=== PATIENT | female | born 1980 | race Caucasian/White ===

== ENCOUNTER 2017-01-08 12:54 | Outpatient (CLI) | payer OTHER | END 2017-01-08 12:55 | disposition home or self-care (01) | LOC: DTY/OP 12:54 | PROVIDERS: ATTEND Surgery | DX: I10 Essential (primary) hypertension (principal) | CPT/HCPCS: 97802 ==

== ENCOUNTER 2017-02-22 16:47 | Outpatient (CLI) | payer BC ==
[2017-02-22 17:48] LABS: #Basophils 0.1 thou/uL (0.0-0.2); #Eosinphils 0.1 thou/uL (0.0-0.7); #Lymphocytes 3.4 thou/uL (1.20-3.40); #Monocytes 0.6 thou/uL (0.11-0.59); #Neutrophils 5.8 thou/uL (1.40-6.50); %Basophils 0.6 % (0.0-1.0); %Eosinophils 1.2 % (0.0-10.0); %Lymphocytes 34.2 % (21.0-51.0); %Monocytes 6.3 % (0.0-10.0); Hematocrit 40.3 % (36.0-47.0); Mean Platelet Volume 7.7 fL (7.4-10.4); Red Blood Cell (RBC) Count 4.66 mill/uL (4.20-5.40)
[2017-02-22 18:04] LABS: ALT (SGPT) 13 U/L (8-55); AST (SGOT) 16 U/L (5-34); Alkaline Phosphatase 64 U/L (40-150); Anion Gap 16 mmol/L (10-20); BUN (Urea Nitrogen) 21 mg/dL (7.0-18.7); Bilirubin, Direct 0.2 mg/dL (0.1-0.3); Bilirubin, Total 0.5 mg/dL (0.2-1.2); Calc. Creatinine Clearance 0 mL/min (70-130); Calcium 9.7 mg/dL (7.8-10.44); Carbon Dioxide 22 mmol/L (22-29); Chloride 103 mmol/L (98-107); Estimated GFR-MDRD 74; Globulin 3.2 g/dL (2.4-3.5); Protein, Total 7.2 g/dL (6.0-8.3)
[2017-02-22 18:07] LABS: Hemoglobin A1c 4.6 % (4.0-6.0)
--- NOTE | 2017-02-22 18:21 | RAD ---
TWO VIEWS CHEST: Date: 02-22-17 Provided Clinical History: Pre op. FINDINGS: Cardiac and mediastinal silhouette is within normal limits. Lungs appear clear. No pleural fluid or p neumothorax apparent. IMPRESSION: No evidence for an acute cardiopulmonary process. POS: [facility]
--- NOTE | 2017-02-23 16:34 | EKG ---
Test Reason : Blood Pressure : / mmHG Vent. Rate : 073 BPM Atrial Rate : 073 BPM P-R Int : 142 ms QRS Dur : 084 ms QT Int : 410 ms P-R-T Axes : 042 -22 005 degrees QTc Int : 451 ms Normal sinus rhythm Possible Anterior infarct , age undetermined Nonspecific T wave abnormality Abnormal ECG No previous ECGs available Confirmed by JOHN SEN ([id number]) on 02/23/2017 4:33:48 PM Referred By: TASNEEM Confirmed By:JOHN SEN
== END 2017-02-22 16:48 | disposition home or self-care (01) ==
LOC: LABBT 16:47
PROVIDERS: ATTEND Surgery
DX: E66.01 Morbid (severe) obesity due to excess calories (principal)
CPT/HCPCS: 71020; 80053; 80076; 83036; 84703; 85025; 93005; 93010

== ENCOUNTER 2017-03-18 07:43 | Inpatient (IN) | payer BC ==
[2017-03-18] MEDS ORDERED: Bupivacaine/Epinephrine 0.25% 30 ML VIAL ONE ×2 (08:15→08:26)
[2017-03-18] MEDS ORDERED: CEFAZOLIN/Water 2 GM/20 ML SYRINGE ONE (08:50)
[2017-03-18] MEDS ORDERED: Heparin 5,000 UNITS/ML VIAL ONE (08:50)
[2017-03-18] MEDS ORDERED: Fentanyl 100 MCG/2 ML VIAL ONE (09:43)
[2017-03-18] MEDS ORDERED: HYDROmorphone 0.5 MG/0.5 ML SYRINGE ONE (09:43)
[2017-03-18] MEDS ORDERED: Midazolam HCl 2 mg/2 ml Vial ONE ×2 (09:43→09:44)
[2017-03-18] MEDS ORDERED: Naloxone HCl 0.4 mg/ml Vial IV PRN (09:48)
[2017-03-18] MEDS ORDERED: Promethazine HCl 25 MG/ML VIAL IM PRN ×3 (09:48→11:13)
[2017-03-18] MEDS ORDERED: Ketorolac Tromethamine 30 MG/ML VIAL IVP PRN (09:48)
[2017-03-18] MEDS ORDERED: Ondansetron HCl/PF 4 MG/2 ML Vial IVP PRN ×2 (09:48→11:13)
[2017-03-18] MEDS ORDERED: diphenhydrAMINE 25 MG CAP PO PRN (09:48)
[2017-03-18] MEDS ORDERED: HYDROmorphone 10 mg/100 ml CADD IVPB PRN (09:48)
[2017-03-18] MEDS ORDERED: diphenhydrAMINE 50 MG/ML VIAL IVP PRN ×2 (09:48→11:13)
[2017-03-18] MEDS ORDERED: diphenhydrAMINE 50 MG/ML VIAL IM PRN (09:48)
[2017-03-18] MEDS ORDERED: Promethazine HCl 25 MG/ML VIAL SLOW IVP PRN (09:48)
[2017-03-18] MEDS ORDERED: Meperidine HCl/PF 25 MG/ML VIAL SLOW IVP PRN (09:48)
[2017-03-18] MEDS ORDERED: Zolpidem Tartrate 5 MG TAB PO PRN (09:48)
[2017-03-18] MEDS ORDERED: HYDROmorphone 2 MG/ML VIAL SLOW IVP PRN (09:48)
[2017-03-18] MEDS ORDERED: Communication Order-Pharmacy FS SCH (10:00)
[2017-03-18] MEDS ORDERED: Dextrose 50% Abboject 50 ML SYRINGE SLOW IVP PRN (11:13)
[2017-03-18] MEDS ORDERED: hydrALAZINE 20 MG/ML VIAL SLOW IVP PRN (11:13)
[2017-03-18] MEDS ORDERED: Dextrose 5% in Water 1,000 ML IV PRN (11:13)
--- NOTE | 2017-03-18 11:22 | OP ---
PREOPERATIVE DIAGNOSIS: Morbid obesity. SURGEON: Wolfgang Ames M.D. PROCEDURES PERFORMED: Laparoscopic sleeve gastrectomy and esophagogastroscopy. INDICATIONS: The patient is a 36-year-old female, morbidly obese, who has attempted multiple weight loss programs without success. FINDINGS: A 38 Persian bougie used. PROCEDURE IN DETAIL: After informed consent was obtained, the patient was taken to the operating rhea m and given general endotracheal anesthesia. She was placed in the supine position. The abdomen was prepped and draped in the usual fashion. Local anesthesia infiltrated subcutaneously and deep. A 1 2 mm incision was performed approximately 8 inches below the xiphoid slightly to the left. Veress ne edle inserted. Drop test performed. Pneumoperitoneum was created to a volume of 2 liters of carbon dioxide. Utilizing a bladeless 12 mm trocar and 0 degree laparoscope direct visual entry in the abdo mustapha cavity was performed. Pneumoperitoneum was created to a pressure of 15 mmHg. The patient was placed in steep reverse Trendelenburg position. Nathansen liver retractor inserted. Left lobe of li portia retracted superiorly. The pylorus identified and a 12 mm port placed on the right beneath it and two 12s placed left subcostal. The omentum was taken off the greater curvature 5 cm from the pyloru s utilizing the LigaSure. The short gastrics divided with LigaSure and the left crura defined with t he LigaSure. A 38-Persian bougie inserted directed into the antrum. The linear 60 mm green load stap ler used to divide the antrum to the bougie, gold load along the bougie, and a series of blues throug h the angle of His. Intraoperative endoscopy was performed. The video endoscope inserted under dire ct vision and advanced into the sleeve. Staple line inspected. There was no bleeding. Staple line then tested by inflating the new stomach with pressurized air under water. There was no air leak. S tomach decompressed. Scope removed. The remnant stomach removed from the abdomen through the left l ateral port site. The fascia closed with 0 Vicryl suture and the GraNee needle. Trocars and retract ors removed. The skin closed with interrupted 4-0 Rapide. Dermabond applied. The patient tolerated the procedure well and transferred to recovery in good condition. Sponge and needle count verified correct x2.
[2017-03-18] MEDS: Acetaminophen 1,000 MG in Premix Bag 1 BAG IVPB SCH ×2 (16:38→16:49)
[2017-03-18] MEDS: CEFAZOLIN/Water 2 GM/20 ML SYRINGE SLOW IVP SCH (16:39)
[2017-03-18] MEDS: D5 1/2 NS w/20 mEq KCL 1,000 ML IV SCH (16:39)
[2017-03-18] MEDS ORDERED: Glycopyrrolate 0.2 MG/ML 5 ML SYRINGE ONE (16:51)
[2017-03-18] MEDS ORDERED: PROPOFOL 200 MG/20 ML VIAL ONE (16:51)
[2017-03-18] MEDS ORDERED: Dexamethasone 20 MG/5 ML VIAL ONE (16:51)
[2017-03-18] MEDS ORDERED: Ketorolac Tromethamine 30 MG/ML VIAL ONE (16:51)
[2017-03-18] MEDS ORDERED: Ondansetron HCl/PF 4 MG/2 ML Vial ONE (16:51)
[2017-03-18] MEDS ORDERED: Lidocaine 1% PF 5 ML VIAL ONE (16:51)
[2017-03-19] MEDS: Acetaminophen 1,000 MG in Premix Bag 1 BAG IVPB SCH ×3 (00:25→12:05)
[2017-03-19] MEDS: CEFAZOLIN/Water 2 GM/20 ML SYRINGE SLOW IVP SCH (00:26)
[2017-03-19] MEDS: D5 1/2 NS w/20 mEq KCL 1,000 ML IV SCH ×4 (00:26→22:40)
[2017-03-19] MEDS: Ondansetron HCl/PF 4 MG/2 ML Vial IVP PRN ×3 (05:36→22:28)
[2017-03-19 05:40] LABS: #Lymphocytes 1.9 thou/uL (1.20-3.40); #Monocytes 0.9 thou/uL (0.11-0.59); #Neutrophils 9.9 thou/uL (1.40-6.50); %Basophils 0.1 % (0.0-1.0); %Eosinophils 0.2 % (0.0-10.0); %Lymphocytes 14.7 % (21.0-51.0); %Monocytes 6.7 % (0.0-10.0); %Neutrophils 78.3 % (42.0-75.0); Hemoglobin 12.7 g/dL (12.0-16.0); Mean Corpuscular HGB CONC 32.8 g/dL (32.0-36.0); Mean Corpuscular Hemoglobin 29.1 pg (27.0-31.0); Mean Corpuscular Volume 88.7 fl (81.0-99.0); Mean Platelet Volume 8.3 fL (7.4-10.4); Platelet Count 324 thou/uL (130-400); RBC Distribution Width 12.3 % (11.5-14.5); Red Blood Cell (RBC) Count 4.36 mill/uL (4.20-5.40); White Blood Cell (WBC) Count 12.6 thou/uL (4.8-10.8)
[2017-03-19 05:46] LABS: Anion Gap 16 mmol/L (10-20); BUN (Urea Nitrogen) 5 mg/dL (7.0-18.7); Calc. Creatinine Clearance 160 mL/min (70-130); Calcium 8.8 mg/dL (7.8-10.44); Carbon Dioxide 20 mmol/L (22-29); Chloride 104 mmol/L (98-107); Estimated GFR-MDRD Greater than 90; Glucose 136 mg/dL (70-105); Potassium 3.9 mmol/L (3.5-5.1); Sodium 136 mmol/L (136-145)
[2017-03-19] MEDS: Pantoprazole 40 MG VIAL IVP SCH (09:02)
[2017-03-19] MEDS: Enoxaparin Sodium 40 MG/0.4 ML SYRINGE SC SCH (09:02)
--- NOTE | 2017-03-19 11:04 | RAD ---
A 15 CC GASTROGRAFIN UPPER GI: DATE: 03/19/17. HISTORY: Recent gastric sleeve procedure, assess for a leak or obstruction. FINDINGS: The patient ingested approximately 15 cc of Gastrografin and the contrast media was followed from the distal esophagus to the proximal small bowel. There is no evidence for a leak or obstruction. IMPRESSION: No evidence for leak or obstruction. POS: [facility]
[2017-03-19] MEDS ORDERED: GASTROGRAFIN 30 ML BOT ONE (12:23)
[2017-03-19] MEDS ORDERED: Hydrocodone-Acetamin 15 ML UDCUP PO PRN (14:56)
[2017-03-20] MEDS: D5 1/2 NS w/20 mEq KCL 1,000 ML IV SCH (03:54)
[2017-03-20 08:17] VITALS: BP 148/95; TEMP 98.3
[2017-03-20] MEDS: Pantoprazole 40 MG VIAL IVP SCH (08:29)
[2017-03-20] MEDS: Enoxaparin Sodium 40 MG/0.4 ML SYRINGE SC SCH (08:29)
--- NOTE | 2017-03-20 09:36 | DIS ---
DATE OF ADMISSION: 03/18/2017 DATE OF DISCHARGE: 03/20/2017 ADMIT DIAGNOSIS: Morbid obesity. DISCHARGE DIAGNOSIS: Morbid obesity. PROCEDURE: Laparoscopic sleeve gastrectomy without complication. CONDITION AT DISCHARGE: Improved. STAFF: Kwaku. HOSPITAL COURSE: Postop day 1, the patient was doing well, but she had moderate amount of nausea. H er swallow study was clear of leak or obstruction. She was kept second night. On postoperative day 2, she is doing much better. She is tolerating liquids without difficulty. Her pain is controlled. She is to be discharged home today. She will follow up with Dr. Ames in 2 weeks.
[2017-04-01] MEDS ORDERED: Hydrocodone-Acetamin 15 ML UDCUP PO PRN (11:13)
== END 2017-03-20 10:45 | disposition home or self-care (01) | DRG 621 ==
LOC: SDC 07:43 → SURG A 12:54
PROVIDERS: ADMIT Surgery; ATTEND Surgery
PROC: 0DB64Z3 Excision of Stomach, Percutaneous Endoscopic Approach, Vertical (ICD-10-PCS; principal; 2017-03-18)
PROC: 0DJ08ZZ Inspection of Upper Intestinal Tract, Via Natural or Artificial Opening Endoscopic (ICD-10-PCS; 2017-03-18)
DX: E66.01 Morbid (severe) obesity due to excess calories (principal); Z88.2 Allergy status to sulfonamides; Z68.39 Body mass index [BMI] 39.0-39.9, adult
CPT/HCPCS: 36415; 74241; 80048; 85025; 88307; 88312; 94760; A4216; C9113; J0131; J1100; J1170; J1200; J1644; J1650; J1885; J2001; J2250; J2405; J2704; J3010

== ENCOUNTER 2017-03-30 21:56 | Inpatient (IN) | payer BC ==
[~2017-03-30 21:56] MED LIST: ISOVUE-370 76%-LOCM 1 ML ONE; Iopamidol 370 76% 50 ML VIAL FS ONE
[2017-03-30 22:42] LABS: #Basophils 0.1 thou/uL (0.0-0.2); #Eosinphils 0.1 thou/uL (0.0-0.7); #Lymphocytes 2.6 thou/uL (1.20-3.40); #Monocytes 2.1 thou/uL (0.11-0.59); %Basophils 0.5 % (0.0-1.0); %Eosinophils 0.3 % (0.0-10.0); %Lymphocytes 14.7 % (21.0-51.0); %Monocytes 11.7 % (0.0-10.0); %Neutrophils 72.7 % (42.0-75.0); Hemoglobin 13.3 g/dL (12.0-16.0); Mean Corpuscular HGB CONC 32.9 g/dL (32.0-36.0); Mean Corpuscular Hemoglobin 28.4 pg (27.0-31.0); Mean Corpuscular Volume 86.4 fl (81.0-99.0); Mean Platelet Volume 8.4 fL (7.4-10.4); Platelet Count 352 thou/uL (130-400); Red Blood Cell (RBC) Count 4.68 mill/uL (4.20-5.40); White Blood Cell (WBC) Count 17.9 thou/uL (4.8-10.8)
[2017-03-30 22:48] LABS: INR-International Normal Ratio 1.2; PTT 32.8 SEC (22.9-36.1); Prothrombin Time 15.6 SEC (12.0-14.7)
[2017-03-30] MEDS ORDERED: Morphine 4 MG/ML Carpuject ONE (22:48)
[2017-03-30 23:01] LABS: ALT (SGPT) 21 U/L (8-55); AST (SGOT) 15 U/L (5-34); Albumin 3.7 g/dL (3.5-5.0); Alkaline Phosphatase 91 U/L (40-150); Anion Gap 19 mmol/L (10-20); BUN (Urea Nitrogen) 10 mg/dL (7.0-18.7); Bilirubin, Total 0.7 mg/dL (0.2-1.2); Calc. Creatinine Clearance 0 mL/min (70-130); Calcium 9.2 mg/dL (7.8-10.44); Carbon Dioxide 18 mmol/L (22-29); Chloride 94 mmol/L (98-107); Estimated GFR-MDRD Greater than 90; Globulin 3.5 g/dL (2.4-3.5); Glucose 109 mg/dL (70-105); Lipase 69 U/L (8-78); Potassium 4.2 mmol/L (3.5-5.1); Protein, Total 7.2 g/dL (6.0-8.3); Sodium 127 mmol/L (136-145)
[2017-03-30 23:06] LABS: Bilirubin Moderate (Negative); Blood, Urine Trace (Negative); Clarity CLOUDY (Clear); Glucose, Urine (Dipstick) Negative (Negative); Leukocyte Small (Negative); Nitrite Negative (Negative); Protein, Urine (Dipstick) Negative (Neg-Trace); Specific Gravity, Urine 1.018 (1.002-1.036); Urobilinogen 0.2 mg/dL (0.2-1.0); pH, Urine 6.5 (5.0-9.0)
[2017-03-30 23:09] LABS: Bacteria/HPF 1+ HPF (None Seen); Hyaline Casts/LPF 0-3 HYALINE CAST LPF (0-3 Hyaline); Pathc Cast-AUWi Flag 0.54 (0-2.49)
[2017-03-30 23:12] LABS: Pregnancy Test - Urine (BHCG) Negative (Negative); Pregu Control Background? CLEAR/WHITE (CLR/WHITE); Pregu Control Bar Appear? YES (CONTROL BAR); Specific Gravity 1.018 (1.002-1.036)
[2017-03-30] MEDS ORDERED: Morphine 2 MG/ML SYRINGE ONE (23:45)
--- NOTE | 2017-03-30 23:45 | CT ---
CT ABDOMEN AND PELVIS WITH IV CONTRAST 03/30/17 PROVIDED CLINICAL HISTORY: Abdominal pain. FINDINGS: The visualized lung bases are free of significant opacity. There is nonopacification of the intrahepatic and extrahepatic portal vein as well as the splenic and superior mesenteric veins, compatible with thrombosis. There is a mildly heterogeneous appearance to the anterior segment of the right hepatic lobe which may be on the basis of altered vascular supply related to thrombosis. The spleen, pancreas, kidneys and adrenal glands appear unremarkable. Gallstones are seen. Gallstones are seen. Postoperative changes of gastric sleeve procedure are noted. There is no evidence for leakage of admi nistered oral contrast material. There is free intraperitoneal air present as well as air within the left anterolateral abdominal wall. There is no bowel dilatation. There is minimal free pelvic fluid. The osseous structures demonstrate no concerning osteoblastic or osteolytic lesions. IMPRESSION: 1. Diffuse intrahepatic and extrahepatic portal vein thrombosis also involving the superior mese nteric and splenic veins. 2. Free intraperitoneal air, the significance of which is not certain given the patient has had recent surgery. The degree of peritoneal gas present is somewhat greater than would be expected for t he patient's provided surgical date of 03/18/17. 3. These findings were discussed with Dr. Alejandra via telephone, 11:33 p.m., 03/30/17. Code CR POS: [facility]ET
[2017-03-30] MEDS ORDERED: Enoxaparin Sodium 80 MG/0.8 ML SYRINGE ONE (23:57)
[2017-03-31] MEDS ORDERED: Morphine 5 MG/ML SYRINGE SLOW IVP PRN (01:50)
[2017-03-31] MEDS ORDERED: Morphine 2 MG/ML SYRINGE SLOW IVP PRN ×2 (01:52→04:25)
[2017-03-31] MEDS ORDERED: Ondansetron HCl/PF 4 MG/2 ML Vial IVP PRN ×2 (01:54→04:25)
[2017-03-31] MEDS ORDERED: Acetaminophen 325 MG TAB PO PRN (01:54)
[2017-03-31] MEDS ORDERED: Ondansetron ODT 4 MG TAB SL PRN (01:54)
[2017-03-31] MEDS ORDERED: Sodium Chloride 0.9% 1,000 ML IV SCH (02:00)
[2017-03-31 02:14] VITALS: BMI 38.1
[2017-03-31] MEDS ORDERED: Warfarin Sodium 5 MG TAB PO SCH ×2 (03:30→17:00)
[2017-03-31] MEDS ORDERED: Ondansetron ODT 4 MG TAB PO PRN (04:25)
[2017-03-31] MEDS: Hydrocodone-Acetamin 15 ML UDCUP PO PRN (05:07)
--- NOTE | 2017-03-31 06:51 | HP ---
DATE OF ADMISSION: 03/31/2017 TIME OF SERVICE: 0400. PRIMARY CARE PHYSICIAN: Dr. Wang Holloway. GENERAL SURGEON: Dr. Wolfgang Ames. CHIEF COMPLAINT: Abdominal pain. HISTORY OF PRESENT ILLNESS: Ms. Pablo is a 36-year-old white female with a history of anxiety and ob esity who is 11 days postop laparoscopic gastric sleeve procedure by Dr. Ames. She did well initially, but now had 1 week of increasing abdominal pain. She describes it as throbbi ng in all of her abdomen. She has some nausea without vomiting. No fevers or chills. She has been able to tolerate her liquid diet. Pain is exacerbated with movement and lying flat. She came to the emergency department for evaluation. There, she was found to have labs with an elevated white blood cell count, but otherwise fairly luz l. Vital signs were unremarkable except for a slight tachycardia. Urinalysis was clean. CT scan of the abdomen was done that showed intrahepatic and extrahepatic portal vein thrombosis, superior mese nteric vein and splenic vein thrombosis. She had free air more than would be expected at this point after a laparoscopic procedure. There was no other mention of leak. I contacted Dr. Ames from the emergency department who requested that we admit and he would consult. The patient is transferred to the floor. She is feeling okay at present. Nausea is under control. No shaking, chills or rigors. No other complaints. PAST MEDICAL HISTORY: 1. Anxiety. 2. Obesity. PAST SURGICAL HISTORY: Includes laparoscopic gastric sleeve procedure on 03/18/2017. HOME MEDICATIONS: 1. Prozac 10 mg p.o. daily. 2. Zofran 4 mg p.o. q.4 hours p.r.n. 3. Hydrocodone/APAP 10/300 per 15 mL, 10-20 mL p.o. q.4 hours p.r.n. 4. Niesha oral contraceptive tablets daily. ALLERGIES: To SULFA. FAMILY HISTORY: Negative for clotting or bleeding disorder. No immune dysfunction, no blood tumors. SOCIAL HISTORY: Negative for habits x3. Her mother is accompanying her. Next of kin is Luz Pablo, her mother. Her phone number is [phone]. The patient works in [employer] at [employer]. She does wish to be a full code. REVIEW OF SYSTEMS: A 10-point review of systems was performed, negative for all other systems except as stated as per HPI. PHYSICAL EXAMINATION: VITAL SIGNS: Temperature 98.4, pulse 99, blood pressure 138/105, respiratory rate 18, satting 97% on room air and also was on 97% on 2 liters. GENERAL: She is awake. She is alert. She is oriented x3. She is a well-developed, well-nourished, white female, looks like she does not feel good. HEENT: Head is normocephalic, atraumatic. Pupils are equal, round and reactive to light bilaterally . Mucous membranes are moist. She has no visible lesion or thrush. NECK: Supple. There is no lymphadenopathy, JVD or thyromegaly. She has normal carotid upstrokes wi thout bruits. LUNGS: Clear to auscultation bilaterally without wheezes, rales or rhonchi. She has good air moveme nt. Symmetrical chest excursion without prolonged expiratory phase. CARDIOVASCULAR: There is normal S1, S2. No S3 or S4. No audible murmurs. ABDOMEN: Soft, it is diffusely tender. She has no rebound or rigidity. She is slightly tympanitic. She has bowel sounds present in all 4 quadrants. EXTREMITIES: No cyanosis or clubbing. Trace pedal edema. She has 2+ peripheral dorsalis pedis, pos terior tibial, and radial pulses. SKIN: Otherwise warm, moist and well perfused. Her laparoscopic incisions are well healed. MUSCULOSKELETAL: Normal to inspection. She has no joint inflammation and no palpable effusions. NEUROLOGIC: Cranial nerves II through XII are grossly intact. She has no focal neurologic deficits. She has normal speech pattern and 5/5 strength. LABORATORY DATA: Sodium 127, potassium 4.2, chloride 94, bicarbonate 18, BUN 10, creatinine 0.70, ca lcium 9.2, and glucose 169. Her liver functions are within normal limits. CBC showed a white count of 17.9 with normal differential, hemoglobin 13.3, hematocrit of 40.5, plate let count 352,000. INR is 1.2. Lipase 69 and urinalysis mildly reactive, but did show 4-6 epithelial cells. RADIOGRAPHIC STUDIES: CT scan of the abdomen and pelvis shows diffuse intrahepatic and extrahepatic portal veins, superior mesenteric vein and splenic vein thrombosis and free air more than would be ex pected with this route from laparoscopic procedure. ASSESSMENT AND PLAN: 1. Portal vein thrombosis. 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 4. Abdominal pain. 5. Obesity. 6. Anxiety. 7. Abdominal pain. At this time, I will start her on Lovenox full dose at 90 mg subcu q.[address] her on C oumadin, I will give her 5 mg dose now and 5 mg p.o. q.p.m. She will need to be on anticoagulation f or 3-6 months and then can be taken off. She likely has thrombosis secondary to abdominal surgery as this is fairly common. The patient will be placed in inpatient. If her insurance will allow outpatient coverage of Lovenox, she could be considered for discharge once surgery feels that she is stable. I am a little concerned about the amount of content present on the CT scan. We will defer to Dr. Lalo olivas's expertise regarding if there is any concern for any ongoing intra-abdominal process.
[2017-03-31] MEDS ORDERED: Sodium Chloride 0.9% 500 ML IV SCH (08:00)
[2017-03-31] MEDS: Famotidine/PF 20 mg/2ml Vial SLOW IVP SCH ×2 (08:43→20:12)
[2017-03-31] MEDS: Sodium Chloride 0.9% 1,000 ML IV SCH ×2 (08:44→13:26)
[2017-03-31] MEDS: Morphine 2 MG/ML SYRINGE SLOW IVP PRN ×5 (08:48→20:13)
[2017-03-31] MEDS: Enoxaparin Sodium 100 MG/ML SYRINGE SC SCH ×2 (08:49→20:14)
[2017-03-31] MEDS ORDERED: DROSPIRENONE PO SCH (09:00)
[2017-03-31] MEDS ORDERED: ETHINYL ESTRADIOL PO SCH (09:00)
[2017-03-31] MEDS ORDERED: Enoxaparin Sodium 80 MG/0.8 ML SYRINGE SC SCH (09:00)
--- NOTE | 2017-03-31 12:42 | HP ---
CHIEF COMPLAINT: Abdominal pain. HISTORY: The patient is a 36-year-old female, 2 weeks status post sleeve gastrectomy with 3-4 day hi story of progressive epigastric and central abdominal pain radiating to the back, associated with sheyla sea, no vomiting, no black or bloody stools. We did a scan in the ER showing thrombosis of portal ve in and the mesenteric vein. PAST MEDICAL HISTORY: Otherwise, healthy. PAST SURGICAL HISTORY: Sleeve. MEDICATIONS: She is on hydrocodone and Maisha. ALLERGIES: To SULFA. FAMILY HISTORY: Hypertension. SOCIAL HISTORY: No tobacco or alcohol. PHYSICAL EXAMINATION: GENERAL: Height 5 feet 1, body mass index of 37. She is an obese female lying still, in minimal dis tress. VITAL SIGNS: Blood pressure of 124/84, pulse 98, temperature 98.5, 97% saturation. HEENT: No jaundice. LUNGS: Clear. HEART: Regular rate and rhythm. ABDOMEN: Soft. She is diffusely tender, but no peritoneal signs. LABORATORY DATA AND IMAGING: Her white count is 17.9, H&H of 13 and 40, platelet count 352. Her sod ium is 127, chloride 94, CO2 of 18, glucose 109, BUN 10, creatinine 0.7. PT of 15.6, INR 1.2. Urina lysis showed 4-6 RBCs and 7-[address] shows diffuse intrahepatic and extrahepatic portal ve in thrombosis, also involving the superior mesenteric and splenic veins. ASSESSMENT: Portal vein thrombosis. PLAN: Anticoagulation, bowel rest, hydration.
--- NOTE | 2017-03-31 15:41 | PDOC.EVN ---
Event Note - Event Note Event Note: Patient seen and examined. Chart reviewed. Cont Lovenox/Warfarin
[2017-04-01] MEDS: Morphine 2 MG/ML SYRINGE SLOW IVP PRN ×5 (00:17→11:08)
[2017-04-01] MEDS: Sodium Chloride 0.9% 1,000 ML IV SCH ×4 (00:17→23:32)
[2017-04-01 05:46] LABS: INR-International Normal Ratio 2.9; Prothrombin Time 31.2 SEC (12.0-14.7)
[2017-04-01 05:55] LABS: #Basophils 0.1 thou/uL (0.0-0.2); #Eosinphils 0.1 thou/uL (0.0-0.7); #Lymphocytes 2.7 thou/uL (1.20-3.40); #Monocytes 1.5 thou/uL (0.11-0.59); %Basophils 0.7 % (0.0-1.0); %Eosinophils 0.5 % (0.0-10.0); %Lymphocytes 23.7 % (21.0-51.0); %Monocytes 13.5 % (0.0-10.0); %Neutrophils 61.7 % (42.0-75.0); Anion Gap 18 mmol/L (10-20); BUN (Urea Nitrogen) 6 mg/dL (7.0-18.7); Calc. Creatinine Clearance 175 mL/min (70-130); Calcium 8.1 mg/dL (7.8-10.44); Carbon Dioxide 17 mmol/L (22-29); Chloride 104 mmol/L (98-107); Estimated GFR-MDRD Greater than 90; Glucose 77 mg/dL (70-105); Hemoglobin 10.5 g/dL (12.0-16.0); Magnesium 1.8 mg/dL (1.6-2.6); Mean Corpuscular HGB CONC 33.5 g/dL (32.0-36.0); Mean Corpuscular Hemoglobin 29.7 pg (27.0-31.0); Mean Corpuscular Volume 88.6 fl (81.0-99.0); Mean Platelet Volume 9.3 fL (7.4-10.4); Platelet Count 299 thou/uL (130-400); Potassium 3.6 mmol/L (3.5-5.1); Red Blood Cell (RBC) Count 3.54 mill/uL (4.20-5.40); Sodium 135 mmol/L (136-145); White Blood Cell (WBC) Count 11.4 thou/uL (4.8-10.8)
[2017-04-01] MEDS: Famotidine/PF 20 mg/2ml Vial SLOW IVP SCH (09:43)
[2017-04-01] MEDS: Enoxaparin Sodium 100 MG/ML SYRINGE SC SCH ×2 (09:43→21:27)
[2017-04-01] MEDS ORDERED: Fentanyl 5000 MCG/250 ML CADD IV PRN (13:01)
[2017-04-01] MEDS: Nystatin 500,000 UNITS/5 ML UDCUP SSW SCH ×3 (13:52→21:28)
[2017-04-01] MEDS ORDERED: Bisacodyl 10 MG SUPP PR SCH (15:15)
[2017-04-01] MEDS ORDERED: Warfarin Sodium 5 MG TAB PO SCH ×2 (17:00)
[2017-04-01] MEDS ORDERED: Warfarin Sodium 2.5 MG TAB PO SCH (17:00)
--- NOTE | 2017-04-01 21:08 | PDOC.PN ---
- Subjective Encounter Start Date: 04/01/17 Encounter Start Time: 18:30 Patient seen and examined. Abd pain controlled with SOLDER TECHNICIAN. No overnight events - Objective Resuscitation Status: Resuscitation Status FULL:Full Resuscitation MAR Reviewed: Yes Vital Signs & Weight: Vital Signs (12 hours) Temp Pulse Resp BP Pulse Ox 04/01/17 20:23 98.4 F 93 16 112/74 100 04/01/17 16:00 99.3 F 93 20 116/79 97 04/01/17 12:45 98.9 F 89 18 121/80 98 04/01/17 09:40 98.3 F 92 20 Weight Weight 202 lb I&O: 03/31/17 04/01/17 04/02/17 06:59 06:59 06:59 Intake Total 740 3620 1925 Balance 740 3620 1925 Result Diagrams: 04/02/17 03:43 04/02/17 03:44 Phys Exam - Physical Examination Constitutional: NAD Respiratory: no wheezing, no rhonchi Cardiovascular: RRR, no rub Gastrointestinal: soft, non-tender, positive bowel sounds Musculoskeletal: no edema Dx/Plan - Plan IMPRESSION: 1. Abd pain due to Portal/Spenic/Sup mesenteric vein thrombosis 2. s/o Lap gastric Sleeve 03/18 3. Hyponatremia 4. ?UTI 5. Oral thrush/Vag candidiasis 6. Obesity BMI 38 /Anxiety PLAN: * Cont Warfarin/Lovenox * Setup Warfarin Clinic * Pain control with SOLDER TECHNICIAN * Tolerating current diet * INR in AM * Warfarin dose reduced to 2.5 mg daily * On Fluconazole Review of Systems - Review of Systems Respiratory: negative: Cough, Dry, Shortness of Breath, Hemoptysis, SOB with Excertion, Pleuritic Pain, Sputum, Wheezing Cardiovascular: negative: chest pain, palpitations, orthopnea, paroxysmal nocturnal dyspnea, edema, light headedness Gastrointestinal: negative: Nausea, Vomiting, Abdominal Pain, Diarrhea, Constipation, Melena, Hematochezia - Medications/Allergies Allergies/Adverse Reactions: Allergies Allergy/AdvReac Type Severity Reaction Status Date / Time Sulfa (Sulfonamide Allergy Verified 03/31/17 02:07 Antibiotics) Medications: Current Medications Hydrocodone Bitart/Acetaminophen (Hydrocodone-Apap 7.5-325/15) 15 ml PO Q4H PRN PRN Reason: Pain 7-10 Last Admin: 03/31/17 05:07 Dose: 15 ml Bisacodyl (Dulcolax) 10 mg ID Q8H PRN PRN Reason: Constipation Last Admin: 04/01/17 20:04 Dose: 10 mg Enoxaparin Sodium (Lovenox) 90 mg SC 0900,2100 [facility] Last Admin: 04/01/17 09:43 Dose: 90 mg Famotidine (Pepcid) 20 mg PO BID [facility] Fentanyl (Fentanyl Cadd) 0 mcg IV INF PRN PRN Reason: Pain Last Admin: 04/01/17 13:51 Dose: 5,000 mcg Sodium Chloride (Normal Saline 0.9%) 1,000 mls @ 125 mls/hr IV .Q8H [facility] Last Admin: 04/01/17 17:10 Dose: 1,000 mls Fluconazole/Sodium Chloride (200 mg/ Device) 100 mls @ 100 mls/hr IVPB DAILY [facility] Miconazole Nitrate (Monistat 7) 1 supp VAG HS [facility] Stop: 04/07/17 21:01 Miscellaneous Medication (Pharmacy To Dose) 0 each PO ASDIR PRN PRN Reason: Pharmacy to Dose WARFARIN Morphine Sulfate (Morphine) 2 mg SLOW IVP Q1H PRN PRN Reason: Mild-Moderate Pain (1-5) Last Admin: 04/01/17 05:29 Dose: 2 mg Morphine Sulfate (Morphine) 4 mg SLOW IVP Q1H PRN PRN Reason: Moderate to Severe Pain (6-10) Last Admin: 04/01/17 11:08 Dose: 4 mg Nystatin (Mycostatin) 500,000 units SSW QID [facility] Last Admin: 04/01/17 17:10 Dose: 500,000 units Ondansetron HCl (Zofran Odt) 4 mg PO Q6H PRN PRN Reason: Nausea/Vomiting Ondansetron HCl (Zofran) 4 mg IVP Q6H PRN PRN Reason: Nausea/Vomiting Pantoprazole Sodium (Protonix) 40 mg PO DAILY [facility] Last Admin: 04/01/17 09:43 Dose: Not Given Sodium Chloride (Flush - Normal Saline) 10 ml IVF Q12HR [facility] Sodium Chloride (Flush - Normal Saline) 10 ml IVF PRN PRN PRN Reason: Saline Flush Warfarin Sodium (Coumadin) 2.5 mg PO 1700 [facility] Last Admin: 04/01/17 17:12 Dose: 2.5 mg
[2017-04-01] MEDS: Famotidine 20 MG TAB PO SCH (21:28)
[2017-04-01] MEDS ORDERED: Bisacodyl 10 MG SUPP PR PRN (23:00)
[2017-04-01] MEDS: Hydrocodone-Acetamin 15 ML UDCUP PO PRN (23:29)
[2017-04-01] MEDS: Miconazole 100 mg Supp Box of 7 VAG SCH (23:32)
[2017-04-02] MEDS: Sodium Chloride 0.9% 1,000 ML IV SCH ×3 (02:03→17:52)
[2017-04-02 04:19] LABS: #Basophils 0.1 thou/uL (0.0-0.2); #Eosinphils 0.1 thou/uL (0.0-0.7); #Monocytes 1.5 thou/uL (0.11-0.59); #Neutrophils 7.1 thou/uL (1.40-6.50); %Basophils 0.5 % (0.0-1.0); %Eosinophils 0.9 % (0.0-10.0); %Lymphocytes 25.6 % (21.0-51.0); %Monocytes 12.6 % (0.0-10.0); %Neutrophils 60.3 % (42.0-75.0); Mean Corpuscular HGB CONC 33.7 g/dL (32.0-36.0); Mean Corpuscular Hemoglobin 29.6 pg (27.0-31.0); Mean Corpuscular Volume 87.8 fl (81.0-99.0); Mean Platelet Volume 8.6 fL (7.4-10.4); Platelet Count 360 thou/uL (130-400); RBC Distribution Width 11.9 % (11.5-14.5); White Blood Cell (WBC) Count 11.8 thou/uL (4.8-10.8)
[2017-04-02 04:20] LABS: Prothrombin Time 45.8 SEC (12.0-14.7)
[2017-04-02 04:22] LABS: INR-International Normal Ratio 4.6
[2017-04-02 04:28] LABS: Anion Gap 14 mmol/L (10-20); BUN (Urea Nitrogen) Less than 4 mg/dL (7.0-18.7); Calc. Creatinine Clearance 167 mL/min (70-130); Calcium 8.4 mg/dL (7.8-10.44); Carbon Dioxide 22 mmol/L (22-29); Chloride 104 mmol/L (98-107); Estimated GFR-MDRD Greater than 90; Glucose 106 mg/dL (70-105); Potassium 3.5 mmol/L (3.5-5.1); Sodium 136 mmol/L (136-145)
[2017-04-02] MEDS: Fluconazole In NaCl,Iso-Osm 200 MG in Premix Bag 1 BAG IVPB SCH ×2 (08:59)
[2017-04-02] MEDS: Nystatin 500,000 UNITS/5 ML UDCUP SSW SCH ×4 (09:00→20:16)
[2017-04-02] MEDS: Famotidine 20 MG TAB PO SCH ×2 (09:00→20:17)
[2017-04-02] MEDS ORDERED: Fentanyl 100 MCG/2 ML VIAL SLOW IVP PRN (12:10)
[2017-04-02] MEDS ORDERED: Fentanyl 5000 MCG/250 ML CADD IV PRN ×2 (12:12→12:14)
--- NOTE | 2017-04-02 17:22 | PDOC.PN ---
- Subjective Encounter Start Date: 04/02/17 Encounter Start Time: 13:00 Patient seen and examined. Abd pain +, on SPECIMEN TECHNICIAN. No overnight events - Objective Resuscitation Status: Resuscitation Status FULL:Full Resuscitation MAR Reviewed: Yes Vital Signs & Weight: Vital Signs (12 hours) Temp Pulse Resp BP Pulse Ox 04/02/17 15:53 98.5 F 90 19 123/87 99 04/02/17 11:53 98.5 F 86 19 128/83 98 04/02/17 08:55 98.5 F 86 19 04/02/17 07:30 98.2 F 86 22 H 115/77 98 Weight Weight 202 lb I&O: 04/01/17 04/02/17 04/03/17 06:59 06:59 06:59 Intake Total 3620 1925 Balance 3620 1925 Result Diagrams: 04/02/17 03:43 04/02/17 03:44 Phys Exam - Physical Examination Constitutional: NAD Respiratory: no wheezing, no rhonchi Cardiovascular: RRR, no rub Gastrointestinal: soft, positive bowel sounds Musculoskeletal: no edema Neurological: non-focal, moves all 4 limbs Dx/Plan - Plan IMPRESSION: 1. Abd pain due to Portal/Spenic/Sup mesenteric vein thrombosis 2. s/o Lap gastric Sleeve 03/18 3. Hyponatremia 4. Oral thrush/Vag candidiasis - On Fluconazole 5. Obesity BMI 38 /Anxiety PLAN: * Cont Warfarin * Lovenox dced per Surgery * Warfarin Clinic setup pending * Pain control with SPECIMEN TECHNICIAN * Tolerating current diet * INR in AM * Warfarin on hold due to supratherapeutic INR Review of Systems - Review of Systems Cardiovascular: negative: chest pain, palpitations, orthopnea, paroxysmal nocturnal dyspnea, edema, light headedness Gastrointestinal: negative: Nausea, Vomiting, Abdominal Pain, Diarrhea, Constipation, Melena, Hematochezia - Medications/Allergies Allergies/Adverse Reactions: Allergies Allergy/AdvReac Type Severity Reaction Status Date / Time Sulfa (Sulfonamide Allergy Verified 03/31/17 02:07 Antibiotics) Medications: Current Medications Hydrocodone Bitart/Acetaminophen (Hydrocodone-Apap 7.5-325/15) 15 ml PO Q4H PRN PRN Reason: Pain 7-10 Last Admin: 04/01/17 23:29 Dose: 15 ml Bisacodyl (Dulcolax) 10 mg MI Q8H PRN PRN Reason: Constipation Last Admin: 04/01/17 20:04 Dose: 10 mg Famotidine (Pepcid) 20 mg PO BID [facility] Last Admin: 04/02/17 09:00 Dose: 20 mg Fentanyl (Fentanyl Cadd) 0 mcg IV INF PRN PRN Reason: Pain Sodium Chloride (Normal Saline 0.9%) 1,000 mls @ 125 mls/hr IV .Q8H [facility] Last Admin: 04/02/17 10:59 Dose: 1,000 mls Fluconazole/Sodium Chloride (200 mg/ Device) 100 mls @ 100 mls/hr IVPB DAILY [facility] Last Admin: 04/02/17 08:59 Dose: 100 mls Miconazole Nitrate (Monistat 7) 1 supp VAG HS [facility] Stop: 04/07/17 21:01 Last Admin: 04/01/17 23:32 Dose: 1 supp Miscellaneous Medication (Pharmacy To Dose) 0 each PO ASDIR PRN PRN Reason: Pharmacy to Dose WARFARIN Nystatin (Mycostatin) 500,000 units SSW QID [facility] Last Admin: 04/02/17 13:18 Dose: 500,000 units Ondansetron HCl (Zofran Odt) 4 mg PO Q6H PRN PRN Reason: Nausea/Vomiting Ondansetron HCl (Zofran) 4 mg IVP Q6H PRN PRN Reason: Nausea/Vomiting Pantoprazole Sodium (Protonix) 40 mg PO DAILY [facility] Last Admin: 04/02/17 09:00 Dose: 40 mg Sodium Chloride (Flush - Normal Saline) 10 ml IVF Q12HR [facility] Last Admin: 04/02/17 09:00 Dose: Not Given Sodium Chloride (Flush - Normal Saline) 10 ml IVF PRN PRN PRN Reason: Saline Flush
[2017-04-02] MEDS: Miconazole 100 mg Supp Box of 7 VAG SCH (20:22)
[2017-04-03] MEDS: Sodium Chloride 0.9% 1,000 ML IV SCH ×4 (02:12→20:42)
[2017-04-03 04:45] LABS: Hemoglobin 10.8 g/dL (12.0-16.0); Platelet Count 369 thou/uL (130-400)
[2017-04-03 04:50] LABS: Prothrombin Time 46.8 SEC (12.0-14.7)
[2017-04-03 04:52] LABS: INR-International Normal Ratio 4.7
[2017-04-03 04:56] LABS: Calc. Creatinine Clearance 172 mL/min (70-130); Estimated GFR-MDRD Greater than 90
[2017-04-03] MEDS: Fluconazole In NaCl,Iso-Osm 200 MG in Premix Bag 1 BAG IVPB SCH ×2 (09:39)
[2017-04-03] MEDS: Famotidine 20 MG TAB PO SCH ×2 (09:39→20:41)
[2017-04-03] MEDS: Nystatin 500,000 UNITS/5 ML UDCUP SSW SCH ×4 (09:39→20:41)
--- NOTE | 2017-04-03 11:37 | PRG ---
DATE OF SERVICE: 04/03/2017 SUBJECTIVE: Ms. Pablo is feeling okay today. She did have some upper abdominal pain wrapping around her right side after eating, but that has eased off. She denies any nausea. She is passing gas. OBJECTIVE: VITAL SIGNS: Stable. ABDOMEN: Soft, nontender, nondistended. Her incisions are healing well. She has some mild tenderne ss to palpation mostly in the upper abdomen. No rigidity, rebound or guarding. No focal findings. Her H&H is stable. INR is still elevated at 4.7. Lovenox and Coumadin have been held since yester y. ASSESSMENT: Status post sleeve gastrectomy with postoperative SMV and thrombosis. Awaiting stabiliz ation on oral anticoagulation, clinically stable.
[2017-04-03] MEDS ORDERED: Warfarin Sodium 2.5 MG TAB PO SCH ×2 (17:00)
--- NOTE | 2017-04-03 18:33 | PDOC.PN ---
- Subjective Encounter Start Date: 04/03/17 Encounter Start Time: 12:00 Patient seen and examined. Abd pain +, on DATA REVIEW SPECIALIST. No overnight events - Objective Resuscitation Status: Resuscitation Status FULL:Full Resuscitation MAR Reviewed: Yes Vital Signs & Weight: Vital Signs (12 hours) Temp Pulse Resp BP Pulse Ox 04/03/17 16:24 98.5 F 82 16 123/79 95 04/03/17 11:42 97.6 F 92 14 152/83 H 98 04/03/17 09:40 98.4 F 78 14 98 04/03/17 07:48 98.4 F 78 14 116/77 98 Weight Weight 202 lb I&O: 04/02/17 04/03/17 04/04/17 06:59 06:59 06:59 Intake Total 1925 3200 2700 Balance 1925 3200 2700 Result Diagrams: 04/03/17 03:11 04/03/17 03:11 Phys Exam - Physical Examination Constitutional: NAD Respiratory: no wheezing, no rhonchi Cardiovascular: RRR, no rub Gastrointestinal: soft, positive bowel sounds mild gen tenderness Musculoskeletal: no edema Neurological: non-focal, moves all 4 limbs Psychiatric: A&O x 3 Dx/Plan - Plan IMPRESSION: 1. Abd pain due to Portal/Spenic/Sup mesenteric vein thrombosis 2. s/o Lap gastric Sleeve 03/18 3. Hyponatremia 4. Oral thrush/Vag candidiasis - On Fluconazole 5. Obesity BMI 38 /Anxiety PLAN: * Lovenox dced per Surgery * Warfarin Clinic setup pending * Pain control with DATA REVIEW SPECIALIST * Change IVF rate to 75 ml/hr * INR in AM * Warfarin on hold due to supratherapeutic INR Laboratory Tests 04/03/17 03:11 INR 4.7 H* Review of Systems - Review of Systems Respiratory: negative: Cough, Dry, Shortness of Breath, Hemoptysis, SOB with Excertion, Pleuritic Pain, Sputum, Wheezing Cardiovascular: negative: chest pain, palpitations, orthopnea, paroxysmal nocturnal dyspnea, edema, light headedness - Medications/Allergies Allergies/Adverse Reactions: Allergies Allergy/AdvReac Type Severity Reaction Status Date / Time Sulfa (Sulfonamide Allergy Verified 03/31/17 02:07 Antibiotics) Medications: Current Medications Hydrocodone Bitart/Acetaminophen (Hydrocodone-Apap 7.5-325/15) 15 ml PO Q4H PRN PRN Reason: Pain 7-10 Last Admin: 04/01/17 23:29 Dose: 15 ml Bisacodyl (Dulcolax) 10 mg HI Q8H PRN PRN Reason: Constipation Last Admin: 04/01/17 20:04 Dose: 10 mg Famotidine (Pepcid) 20 mg PO BID [facility] Last Admin: 04/03/17 09:39 Dose: 20 mg Fentanyl (Fentanyl Cadd) 0 mcg IV INF PRN PRN Reason: Pain Sodium Chloride (Normal Saline 0.9%) 1,000 mls @ 125 mls/hr IV .Q8H [facility] Last Admin: 04/03/17 18:13 Dose: 1,000 mls Fluconazole/Sodium Chloride (200 mg/ Device) 100 mls @ 100 mls/hr IVPB DAILY [facility] Last Admin: 04/03/17 09:39 Dose: 100 mls Miconazole Nitrate (Monistat 7) 1 supp VAG HS [facility] Stop: 04/07/17 21:01 Last Admin: 04/02/17 20:22 Dose: 1 supp Miscellaneous Medication (Pharmacy To Dose) 0 each PO ASDIR PRN PRN Reason: Pharmacy to Dose WARFARIN Nystatin (Mycostatin) 500,000 units SSW QID [facility] Last Admin: 04/03/17 18:13 Dose: 500,000 units Ondansetron HCl (Zofran Odt) 4 mg PO Q6H PRN PRN Reason: Nausea/Vomiting Ondansetron HCl (Zofran) 4 mg IVP Q6H PRN PRN Reason: Nausea/Vomiting Pantoprazole Sodium (Protonix) 40 mg PO DAILY [facility] Last Admin: 04/03/17 09:39 Dose: 40 mg Sodium Chloride (Flush - Normal Saline) 10 ml IVF Q12HR [facility] Last Admin: 04/03/17 09:40 Dose: Not Given Sodium Chloride (Flush - Normal Saline) 10 ml IVF PRN PRN PRN Reason: Saline Flush
[2017-04-03] MEDS: Miconazole 100 mg Supp Box of 7 VAG SCH (20:44)
[2017-04-04 04:16] LABS: Hemoglobin 10.2 g/dL (12.0-16.0); Platelet Count 369 thou/uL (130-400)
[2017-04-04 04:20] LABS: Prothrombin Time 42.3 SEC (12.0-14.7)
[2017-04-04 04:37] LABS: INR-International Normal Ratio 4.2
[2017-04-04] MEDS: Famotidine 20 MG TAB PO SCH ×2 (08:54→22:26)
[2017-04-04] MEDS: Fluconazole In NaCl,Iso-Osm 200 MG in Premix Bag 1 BAG IVPB SCH ×2 (08:54)
[2017-04-04] MEDS: Nystatin 500,000 UNITS/5 ML UDCUP SSW SCH ×4 (08:55→22:27)
[2017-04-04] MEDS: Sodium Chloride 0.9% 1,000 ML IV SCH (13:48)
--- NOTE | 2017-04-04 15:19 | PDOC.PN ---
- Subjective Encounter Start Date: 04/04/17 Encounter Start Time: 15:18 Ms. Pablo is still having about 4/10 abdominal pain, even while on the MBA INTERN pump. Her symptoms are worse after eating. - Objective Resuscitation Status: Resuscitation Status FULL:Full Resuscitation MAR Reviewed: Yes Vital Signs & Weight: Vital Signs (12 hours) Temp Pulse Resp BP Pulse Ox 04/04/17 12:36 98.5 F 75 18 119/81 97 04/04/17 08:50 98.5 F 76 16 96 04/04/17 08:12 98.5 F 76 16 93/66 96 04/04/17 04:00 98.5 F 81 16 106/74 95 Weight Weight 202 lb I&O: 04/03/17 04/04/17 04/05/17 06:59 06:59 06:59 Intake Total 3200 3645 Balance 3200 3645 Result Diagrams: 04/04/17 03:02 04/03/17 03:11 Phys Exam - Physical Examination HEENT: PERRLA Respiratory: no wheezing, no rales, no rhonchi, clear to auscultation bilateral Cardiovascular: RRR, no significant murmur Gastrointestinal: soft, positive bowel sounds + diffuse tenderness Musculoskeletal: no edema Dx/Plan (1) 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 Will discontinue Diflucan, and change the vaginal cream to Terazole * Continue to monitor the INR closely * Bertin MBA INTERN as tolerated.
--- NOTE | 2017-04-04 21:21 | PRG ---
DATE OF SERVICE: 04/04/2017 SUBJECTIVE: Ms. Pablo is feeling okay today. She continues to have burning pain across her upper ab domen when she eats. She states that this is subjectively different from her upper arm pain and it s eems to be the new normal since she has had her mesenteric venous thrombosis. She is not having any nausea and she is tolerating a full liquid bariatric diet. OBJECTIVE: VITAL SIGNS: Stable. ABDOMEN: Her incisions are clean and her abdomen is soft with minimal tenderness across the upper ab domen. LABORATORY DATA: INR today is 4.2. ASSESSMENT AND PLAN: Status post sleeve gastrectomy with postoperative mesenteric venous thrombosis, clinically stable and awaiting stabilization of coags, on Coumadin. I encouraged her to eat multipl e small meals. It does not appear that they are bringing her snacks in between meals, so I have orde red those.
[2017-04-05] MEDS: Clotrimazole 2% 3 Day Vag Cr 22.2 GM TUBE VAG SCH ×2 (00:18→21:29)
[2017-04-05] MEDS: Sodium Chloride 0.9% 1,000 ML IV SCH ×3 (00:19→20:40)
[2017-04-05 04:23] LABS: INR-International Normal Ratio 3.8; Prothrombin Time 39.2 SEC (12.0-14.7)
--- NOTE | 2017-04-05 09:30 | CT ---
CT OF THE ABDOMEN AND EPLVIS WITH COTNRAST: COMPARISON: 03/30/17. HISTORY: Mesenteric vein thrombosis. TECHNIQUE: Multiple contiguous axial images were obtained in a CT of the abdomen and pelvis with contrast. Nanci nal reformats were performed. FINDINGS: There is a large amount of thrombus again seen within the portal vein and splenic vein as well as the superior mesenteric vein at the confluence. This has not significantly changed compared to the prio r exam. There is slightly decreased enhancement of the central aspect of the liver. Gallstones are seen in the gallbladder. The kidneys, adrenal glands, spleen, and pancreas are unrema rkable. No free air is seen in the abdomen or pelvis. A small amount of free fluid is seen in the p kristine. Stranding changes are seen in the region of the oskar hepatis surrounding the portal vein thr ombosis. The large and small bowel are unremarkable. The appendix is normal. No abdominal or pelvic lymphade nopathy are seen. Postsurgical changes are seen in the stomach. There are small bilateral pleural effusions with adjacent atelectasis. Mild degenerative changes are seen in the spine. The abdominal wall soft tissues are unremarkable. IMPRESSION: 1. Stable thrombus involving the portal vein as above. 2. Cholelithiasis. POS: [facility]
[2017-04-05] MEDS ORDERED: Fentanyl 5000 MCG/250 ML CADD IV PRN (09:35)
[2017-04-05] MEDS: Nystatin 500,000 UNITS/5 ML UDCUP SSW SCH ×4 (09:56→20:41)
[2017-04-05] MEDS: Famotidine 20 MG TAB PO SCH ×2 (09:56→20:41)
[2017-04-05] MEDS ORDERED: ISOVUE-370 76%-LOCM 1 ML ONE (12:15)
--- NOTE | 2017-04-05 15:39 | PDOC.PN ---
- Subjective Encounter Start Date: 04/05/17 Encounter Start Time: 15:37 Ms. Pablo was seen in follow-up. She continues to have some abdominal pain, requiring the ASSIGNMENT AGENT. She is eating some, no nausea or vomiting. - Objective Resuscitation Status: Resuscitation Status FULL:Full Resuscitation MAR Reviewed: Yes Vital Signs & Weight: Vital Signs (12 hours) Temp Pulse Resp BP Pulse Ox 04/05/17 11:27 98.2 F 84 16 122/79 99 04/05/17 08:00 98.3 F 82 18 98 04/05/17 07:06 98.3 F 82 18 122/82 98 04/05/17 04:00 98.6 F 77 16 112/80 95 Weight Weight 202 lb I&O: 04/04/17 04/05/17 04/06/17 06:59 06:59 06:59 Intake Total 3645 890 Balance 3645 890 Result Diagrams: 04/04/17 03:02 04/03/17 03:11 Phys Exam - Physical Examination HEENT: PERRLA Respiratory: no wheezing, no rales, no rhonchi, clear to auscultation bilateral Cardiovascular: RRR, no significant murmur, no rub Gastrointestinal: soft, non-tender, positive bowel sounds Musculoskeletal: edema present trace edema Dx/Plan (1) Mesenteric venous thrombosis Code(s): I81 - PORTAL VEIN THROMBOSIS Status: Acute (2) Morbid obesity Code(s): E66.01 - MORBID (SEVERE) OBESITY DUE TO EXCESS CALORIES Status: Acute (3) Vaginal candidiasis Code(s): B37.3 - CANDIDIASIS OF VULVA AND VAGINA Status: Acute - Plan * Mesenteric vein thrombosis- her INR has now fallen below 4.0, Can likely re- start coumadin tomorrow * Continue to advance diet as per Surgery * Continue to encourage Incentive Spirometry * Continue to monitor INR.
[2017-04-05] MEDS ORDERED: Milk Of Magnesia 30 ML UDCUP PO PRN (16:25)
[2017-04-06 04:43] LABS: INR-International Normal Ratio 3.6; Prothrombin Time 37.8 SEC (12.0-14.7)
[2017-04-06] MEDS: Famotidine 20 MG TAB PO SCH ×2 (08:52→21:29)
[2017-04-06] MEDS: Nystatin 500,000 UNITS/5 ML UDCUP SSW SCH ×4 (08:53→21:29)
[2017-04-06] MEDS: Polyethylene Glycol 3350 17 GM Packet PO SCH (08:53)
[2017-04-06] MEDS: Sodium Chloride 0.9% 1,000 ML IV SCH ×2 (08:59→21:41)
--- NOTE | 2017-04-06 15:09 | PDOC.PN ---
- Subjective Encounter Start Date: 04/06/17 Encounter Start Time: 15:07 Ms. Pablo was seen today in follow-up. She is complaining of continued abdominal pain. She is still requiring a DIRECTOR OF NURSING pump. She says her oral intake has improved a little. - Objective Resuscitation Status: Resuscitation Status FULL:Full Resuscitation MAR Reviewed: Yes Vital Signs & Weight: Vital Signs (12 hours) Temp Pulse Resp BP Pulse Ox 04/06/17 12:10 98.1 F 89 18 117/79 99 04/06/17 07:55 98.6 F 79 16 111/69 97 04/06/17 07:50 98.6 F 79 16 97 04/06/17 05:03 97.9 F 81 18 91/60 96 Weight Weight 202 lb I&O: 04/05/17 04/06/17 04/07/17 06:59 06:59 06:59 Intake Total 890 3760 Balance 890 3760 Result Diagrams: 04/04/17 03:02 04/03/17 03:11 Phys Exam - Physical Examination HEENT: PERRLA Respiratory: no wheezing, no rales, no rhonchi Cardiovascular: RRR, no significant murmur, no rub Gastrointestinal: soft, positive bowel sounds + diffuse tenderness, no rebound or guarding Musculoskeletal: no edema Dx/Plan (1) Mesenteric venous thrombosis Code(s): I81 - PORTAL VEIN THROMBOSIS Status: Acute (2) Morbid obesity Code(s): E66.01 - MORBID (SEVERE) OBESITY DUE TO EXCESS CALORIES Status: Acute (3) Vaginal candidiasis Code(s): B37.3 - CANDIDIASIS OF VULVA AND VAGINA Status: Acute - Plan * Acute Mesenteric and Splenic vein thrombosis- her INR is 3.6 today. Will continue to hold coumadin for now, and possibly re-start tomorrow depending on her INR * Advance diet as per General Surgery * Replace potassium * Wean pain medication as tolerated.
[2017-04-06] MEDS ORDERED: Hydrocodone-Acetamin 15 ML UDCUP PO SCH ×2 (16:00)
[2017-04-06] MEDS: Clotrimazole 2% 3 Day Vag Cr 22.2 GM TUBE VAG SCH (21:30)
[2017-04-07] MEDS ORDERED: Hydrocodone-Acetamin 15 ML UDCUP PO SCH ×2
[2017-04-07 06:11] LABS: Prothrombin Time 32.4 SEC (12.0-14.7)
[2017-04-07] MEDS ORDERED: DC PCA Order Set 1 EACH FS ONE (08:39)
[2017-04-07] MEDS: Nystatin 500,000 UNITS/5 ML UDCUP SSW SCH ×4 (09:03→21:18)
[2017-04-07] MEDS: Polyethylene Glycol 3350 17 GM Packet PO SCH (09:03)
[2017-04-07] MEDS ORDERED: Thiamine HCl 200 MG/2 ML VIAL SLOW IVP SCH (11:30)
[2017-04-07] MEDS: Hydrocodone-Acetamin 15 ML UDCUP PO PRN ×2 (11:36→17:07)
[2017-04-07] MEDS: Sodium Chloride 0.9% 1,000 ML IV SCH (11:42)
--- NOTE | 2017-04-07 16:06 | PDOC.PN ---
- Subjective Encounter Start Date: 04/07/17 Encounter Start Time: 16:02 Ms Pablo says the abdominal pain has improved. She is now off the CHIEF LEGAL OFFICER pump. She denies any chest pain or shortness of breath. - Objective Resuscitation Status: Resuscitation Status FULL:Full Resuscitation MAR Reviewed: Yes Vital Signs & Weight: Vital Signs (12 hours) Temp Pulse Resp BP Pulse Ox 04/07/17 15:22 98.0 F 77 16 122/82 100 04/07/17 11:46 97.4 F L 77 16 136/81 100 04/07/17 07:55 98.2 F 83 16 96 04/07/17 07:43 98.2 F 83 16 118/84 96 Weight Weight 202 lb I&O: 04/06/17 04/07/17 04/08/17 06:59 06:59 06:59 Intake Total 3760 2750 Balance 3760 2750 Result Diagrams: 04/04/17 03:02 04/03/17 03:11 Phys Exam - Physical Examination HEENT: PERRLA Respiratory: no wheezing, no rales, no rhonchi, clear to auscultation bilateral Cardiovascular: RRR, no significant murmur Gastrointestinal: soft, non-tender, positive bowel sounds Musculoskeletal: edema present trace pedal edema Dx/Plan (1) Mesenteric venous thrombosis Code(s): I81 - PORTAL VEIN THROMBOSIS Status: Acute (2) Morbid obesity Code(s): E66.01 - MORBID (SEVERE) OBESITY DUE TO EXCESS CALORIES Status: Acute (3) Vaginal candidiasis Code(s): B37.3 - CANDIDIASIS OF VULVA AND VAGINA Status: Acute - Plan * Mesenteric Venous thrombosis- will re-start coumadin at a lower dose * Continue to monitor INR closely * Arrangements have been made for her to go to the coumadin clinic after discharge * Abdominal Pain is better controlled * Anticipate discharge soon
[2017-04-07] MEDS ORDERED: Warfarin Sodium 2.5 MG TAB PO SCH (17:00)
[2017-04-07] MEDS ORDERED: Warfarin Sodium 2 MG TAB PO SCH (17:00)
[2017-04-07] MEDS ORDERED: Hydrocodone-Acetamin 15 ML UDCUP PO PRN ×2 (17:01→17:15)
[2017-04-07] MEDS ORDERED: Clopidogrel Bisulfate 75 MG TAB ONE (21:54)
[2017-04-08] MEDS ORDERED: diphenhydrAMINE 50 MG/ML VIAL IVP SCH (03:30)
[2017-04-08 06:03] LABS: INR-International Normal Ratio 3.6; Prothrombin Time 37.3 SEC (12.0-14.7)
[2017-04-08] MEDS: Sodium Chloride 0.9% 1,000 ML IV SCH (08:35)
[2017-04-08] MEDS: Polyethylene Glycol 3350 17 GM Packet PO SCH (08:39)
[2017-04-08] MEDS: Nystatin 500,000 UNITS/5 ML UDCUP SSW SCH (08:39)
[2017-04-08 11:27] VITALS: BP 117/78; TEMP 97.8
--- NOTE | 2017-04-08 11:34 | DIS ---
DISCHARGE DIAGNOSIS: Mesenteric venous thrombosis. PROCEDURES DURING ADMISSION: CT scan of abdomen x2, anticoagulation. HOSPITAL COURSE: The patient was admitted. CT showed mesentery venous thrombosis. She was anticoag ulated with both Lovenox and started on Coumadin. Initially she was unable to take anything orally, had to be given IV fluids. Eventually, the pain was controlled and we were able to slowly advance he r diet. She is now tolerating a soft diet well. Her INR is good on 2.5 of Coumadin. Her INR is now 3. She is staying hydrated, drinking fluids well. She is discharged home on Lortab, elixir, and Co umadin. She will follow up with me in 2 weeks. She will follow up with Coumadin Clinic in 5-7 days.
--- NOTE | 2017-04-08 11:37 | PDOC.PN ---
- Subjective Encounter Start Date: 04/08/17 Encounter Start Time: 11:35 Ms. Pablo was seen in follow-up. She does not have any complaints today. - Objective Resuscitation Status: Resuscitation Status FULL:Full Resuscitation MAR Reviewed: Yes Vital Signs & Weight: Vital Signs (12 hours) Temp Pulse Resp BP Pulse Ox 04/08/17 11:26 97.8 F 82 18 117/78 97 04/08/17 08:50 98.6 F 78 14 126/82 97 04/08/17 08:35 98.6 F 78 14 04/08/17 03:51 98 F 73 18 119/86 96 Weight Weight 202 lb I&O: 04/07/17 04/08/17 04/09/17 06:59 06:59 06:59 Intake Total 2750 3140 Balance 2750 3140 Result Diagrams: 04/04/17 03:02 04/03/17 03:11 Phys Exam - Physical Examination HEENT: PERRLA Respiratory: no wheezing, no rales, no rhonchi, clear to auscultation bilateral Cardiovascular: RRR, no significant murmur Gastrointestinal: soft, non-tender, positive bowel sounds Musculoskeletal: no edema Dx/Plan (1) Mesenteric venous thrombosis Code(s): I81 - PORTAL VEIN THROMBOSIS Status: Acute (2) Morbid obesity Code(s): E66.01 - MORBID (SEVERE) OBESITY DUE TO EXCESS CALORIES Status: Acute (3) Vaginal candidiasis Code(s): B37.3 - CANDIDIASIS OF VULVA AND VAGINA Status: Acute - Plan * Mesenteric Vein Thrombosis- improved symptomatically * She is stable for discharge home. She plans to go to the coumadin clinic today..
--- NOTE | 2017-04-08 12:44 | DIS ---
PRIMARY CARE PHYSICIAN: Wang Holloway M.D. DATE OF ADMISSION: 03/31/2017 DATE OF DISCHARGE: 04/08/2017 DISCHARGE DISPOSITION: Home. PRIMARY DISCHARGE DIAGNOSES: 1. Acute mesenteric vein, portal vein, and splenic vein thrombosis. 2. Obesity. 3. Recent laparoscopic gastric sleeve. DISCHARGE MEDICATIONS: Include Coumadin, the exact dose is to be determined; Prilosec 10 mg daily; L ortab 10/325 q.4 hours as needed; and Zofran 4 mg p.r.n. The patient has been taken off control pills, the estradiol, due to the blood clot. CODE STATUS: FULL CODE. ALLERGIES: SULFA. PROCEDURES DONE DURING ADMISSION: The patient had a CT scan of the abdomen and pelvis which showed d iffuse intrahepatic and extrahepatic portal vein thrombosis involving the superior mesenteric and spl enic vein. There is some free intraperitoneal air, likely due to the recent surgery. HOSPITAL COURSE: Ms. Pablo is a pleasant 36-year-old female, who presented to the emergency room wit h sudden onset of severe abdominal pain. She is having no chills or fever that was exacerbated with movement. She was seen in the ER and it was determined that she had a portal vein thrombosis which w as fairly extensive. This is felt to be possibly related to surgical complications along with being made somewhat hypercoagulable due to control pills. She was taken off the control pills and started on Coumadin. Her hospital course was complicated by supratherapeutic INR. Her INR went up to 4.7 with only 5 mg of Coumadin after she had just been started. I suspect that she is either g enetically very sensitive to Coumadin or due to the recent surgery, she may have had poor oral intake and decrease in her vitamin K stores. Therefore, her Coumadin dose upon discharge should be started at a very low dose, possibly even only 1 mg a day. I discussed this with Dr. Holloway over the phone and also she has been set up to go to the Coumadin Clinic, which she plans to attend after discharge today. Therefore, the patient has become more stable. She has been able to tolerate oral intake wi thout severe pain and is being discharged home.
[2017-04-10] MEDS ORDERED: Warfarin Sodium 1 MG TAB PO SCH (17:00)
== END 2017-04-08 12:30 | disposition home or self-care (01) | DRG 299 ==
LOC: ERS 21:56 → SURG A 03-31 00:32
PROVIDERS: ADMIT Internal Medicine Infectious Disease; ATTEND Internal Medicine Infectious Disease
DX: T81.72XA Complication of vein following a procedure, not elsewhere classified, initial encounter (principal); I81 Portal vein thrombosis; I82.890 Acute embolism and thrombosis of other specified veins; E66.01 Morbid (severe) obesity due to excess calories; E87.1 Hypo-osmolality and hyponatremia; B37.3 Candidiasis of vulva and vagina; F41.9 Anxiety disorder, unspecified; Z88.2 Allergy status to sulfonamides; Z98.84 Bariatric surgery status; Z68.38 Body mass index [BMI] 38.0-38.9, adult
CPT/HCPCS: 36415; 74177; 80048; 80053; 81003; 81015; 81025; 82565; 83690; 83735; 85014; 85018; 85025; 85049; 85610; 85730; 87086; 96361; 96372; 96374; 96376; A4216; J1200; J1450; J1650; J2270; J3010; J3411; S0028

== ENCOUNTER 2018-01-02 15:38 | Inpatient (IN) | payer BC ==
[2018-01-02 16:06] LABS: Bilirubin Negative (Negative); Blood, Urine Negative (Negative); Clarity CLOUDY (Clear); Glucose, Urine (Dipstick) Negative (Negative); Leukocyte Trace (Negative); Nitrite Negative (Negative); Protein, Urine (Dipstick) Negative (Neg-Trace); Specific Gravity, Urine 1.015 (1.002-1.036); pH, Urine 7.5 (5.0-9.0)
[2018-01-02 16:07] LABS: Pregnancy Test - Urine (BHCG) Negative (Negative); Pregu Control Background? CLEAR/WHITE (CLR/WHITE); Pregu Control Bar Appear? YES (CONTROL BAR); Specific Gravity 1.015 (1.002-1.036)
[2018-01-02 16:09] LABS: Bacteria/HPF None Seen HPF (None Seen); Hyaline Casts/LPF 0-3 HYALINE CAST LPF (0-3 Hyaline); RBC/HPF 0-3 HPF (0-3); Squamous Epithelial None Seen HPF (0-3); WBC/HPF 0-3 HPF (0-3)
[2018-01-02 16:14] LABS: #Basophils 0.1 thou/uL (0.0-0.2); #Eosinphils 0.1 thou/uL (0.0-0.7); #Lymphocytes 1.3 thou/uL (1.20-3.40); #Monocytes 0.3 thou/uL (0.11-0.59); #Neutrophils 2.4 thou/uL (1.40-6.50); %Basophils 2.4 % (0.0-1.0); %Eosinophils 1.7 % (0.0-10.0); %Lymphocytes 30.9 % (21.0-51.0); %Neutrophils 57.9 % (42.0-75.0); Hemoglobin 13.3 g/dL (12.0-16.0); Mean Corpuscular HGB CONC 32.8 g/dL (32.0-36.0); Mean Corpuscular Hemoglobin 29.6 pg (27.0-31.0); Mean Corpuscular Volume 90.1 fL (78.0-98.0); Platelet Count 139 thou/uL (130-400); RBC Distribution Width 14.8 % (11.5-14.5); Red Blood Cell (RBC) Count 4.48 mill/uL (4.20-5.40); White Blood Cell (WBC) Count 4.1 thou/uL (4.8-10.8)
[2018-01-02 16:36] LABS: INR-International Normal Ratio 1.8; PTT 31.7 SEC (22.9-36.1); Prothrombin Time 21.3 SEC (12.0-14.7)
[2018-01-02 16:39] LABS: ALT (SGPT) 95 U/L (8-55); AST (SGOT) 59 U/L (5-34); Albumin 4.4 g/dL (3.5-5.0); Alkaline Phosphatase 239 U/L (40-150); Anion Gap 14 mmol/L (10-20); BUN (Urea Nitrogen) 17 mg/dL (7.0-18.7); Bilirubin, Total 1.3 mg/dL (0.2-1.2); Calc. Creatinine Clearance 0 mL/min (70-130); Calcium 9.5 mg/dL (7.8-10.44); Carbon Dioxide 24 mmol/L (22-29); Chloride 106 mmol/L (98-107); Estimated GFR-MDRD 80; Globulin 3.1 g/dL (2.4-3.5); Glucose 100 mg/dL (70-105); Lipase 60 U/L (8-78); Potassium 4.2 mmol/L (3.5-5.1); Protein, Total 7.5 g/dL (6.0-8.3); Sodium 140 mmol/L (136-145)
[2018-01-02] MEDS ORDERED: Ondansetron PF 4 MG/2 ML Vial ONE (17:24)
[2018-01-02] MEDS ORDERED: Dicyclomine 20 MG TAB ONE (17:26)
--- NOTE | 2018-01-02 18:24 | ULT ---
SONOGRAM RIGHT UPPER QUADRANT: History: Right upper quadrant pain. FINDINGS: Gallbladder is distended at 9.7 cm without focal tenderness over the gallbladder fossa at the time of the exam. Multiple shadowing stones. No pericholecystic fluid or gallbladder wall thickening. Common duct is 0.4 cm. Liver is heterogeneous. Centrally, an oval 5.5 cm hyperechoic area is likely related to recent episode of portal venous thrombus. IMPRESSION: Cholelithiasis. No evidence of acute biliary obstruction. POS: [facility]
[2018-01-02] MEDS ORDERED: Ondansetron ODT 4 MG TAB PO PRN (19:42)
[2018-01-02] MEDS ORDERED: hydrALAZINE 20 MG/ML VIAL SLOW IVP PRN (19:42)
[2018-01-02] MEDS ORDERED: Ondansetron PF 4 MG/2 ML Vial IVP PRN (19:42)
[2018-01-02] MEDS ORDERED: Ondansetron ODT 8 MG TAB SL PRN (19:48)
[2018-01-02] MEDS ORDERED: Ondansetron ODT 8 MG TAB PO PRN (19:48)
[2018-01-02] MEDS ORDERED: Scopolamine 1.5 mg/72 hour Patch TD SCH (20:00)
[2018-01-02] MEDS: Lactated Ringer's 1,000 ML IV SCH (21:31)
[2018-01-02] MEDS: Enoxaparin Sodium 40 MG/0.4 ML SYRINGE SC SCH (21:33)
[2018-01-02 22:26] VITALS: BMI 24.1
[2018-01-02] MEDS: Ketorolac Tromethamine 30 MG/ML VIAL IVP SCH (23:50)
[2018-01-02] MEDS: Acetaminophen 1,000 MG in Premix Bag 1 BAG IVPB SCH (23:51)
--- NOTE | 2018-01-03 00:42 | HP ---
HISTORY OF PRESENT ILLNESS: Shelly Pablo is a 37-year-old female, who is on Coumadin for portal vein t hrombosis after a 90-pound weight loss from a sleeve gastrectomy in March. She was diagnosed with portal vein thrombosis 2 weeks afterwards. Since that time, she was noted by followup scans to have mild splenomegaly, which probably is just a result of her portal vein thrombosis. She had a CAT scan probably elsewhere in the interim. It suggested some remnants of thrombus and she was maintained on Coumadin anticoagulation. She has an appointment to see Dr. Dior soon. She has, for the past 2 weeks, experienced intermittent pain, epigastric right upper quadrant, back radiation, becoming extre xiomara severe and presented in the emergency room, noted to have a bilirubin of 1.3, AST 59, ALT 95, al kaline phosphatase 239. She had an ultrasound, revealed gallstones with normal bile duct caliber. W sven count is 4 and hemoglobin 13. She has been admitted for intravenous antibiotics, fluids. Her P T/INR 21.3 and 1.8. She took Coumadin last night, but not today. We will hold that. Dr. Ames perf ormed a sleeve gastrectomy and will be available tomorrow for a laparoscopic cholecystectomy. ALLERGIES: SULFA. TOBACCO: None. ALCOHOL: None. MEDICATIONS: Coumadin daily, Zofran p.r.n., Prilosec daily, hydrocodone p.r.n. PAST SURGICAL HISTORY: Laparoscopic sleeve gastrectomy, March, 90-pound weight loss. PAST MEDICAL HISTORY: Noncontributory except for portal vein thrombosis, on Coumadin. PHYSICAL EXAMINATION: VITAL SIGNS: Blood pressure 120/74 and respiratory rate 18. HEAD, EARS, EYES, NOSE, AND THROAT: Unremarkable. LUNGS: Clear to auscultation. CARDIAC: Regular rate and rhythm without murmur, rub, or gallop. ABDOMEN: Soft. Mild tenderness in right upper quadrant with guarding, positive Dickson's. EXTREMITIES: Unremarkable. ASSESSMENT AND PLAN: 1. Acute cholecystitis and cholelithiasis. Recommend laparoscopic video cholecystectomy. Dr. Ames will assume her care tomorrow to perform this, pending her INR normalization. 2. Portal vein thrombosis. Hold her Coumadin for now.
[2018-01-03] MEDS: Ketorolac Tromethamine 30 MG/ML VIAL IVP SCH ×4 (05:31→23:59)
[2018-01-03] MEDS: Acetaminophen 1,000 MG in Premix Bag 1 BAG IVPB SCH ×4 (05:34→23:20)
[2018-01-03] MEDS: Lactated Ringer's 1,000 ML IV SCH ×2 (05:35→08:15)
[2018-01-03 06:27] LABS: ALT (SGPT) 73 U/L (8-55); AST (SGOT) 42 U/L (5-34); Albumin 3.6 g/dL (3.5-5.0); Alkaline Phosphatase 190 U/L (40-150); Anion Gap 9 mmol/L (10-20); BUN (Urea Nitrogen) 12 mg/dL (7.0-18.7); Bilirubin, Total 1.4 mg/dL (0.2-1.2); Calc. Creatinine Clearance 95 mL/min (70-130); Calcium 8.7 mg/dL (7.8-10.44); Carbon Dioxide 28 mmol/L (22-29); Chloride 110 mmol/L (98-107); Estimated GFR-MDRD 89; Globulin 2.4 g/dL (2.4-3.5); Glucose 79 mg/dL (70-105); Potassium 4.1 mmol/L (3.5-5.1); Sodium 143 mmol/L (136-145)
[2018-01-03 07:37] LABS: INR-International Normal Ratio 1.9; Prothrombin Time 22.2 SEC (12.0-14.7)
[2018-01-03 08:13] LABS: INR-International Normal Ratio 1.9; PTT 35.3 SEC (22.9-36.1); Prothrombin Time 21.7 SEC (12.0-14.7)
[2018-01-03] MEDS: Pantoprazole 40 MG VIAL IVP SCH (08:14)
[2018-01-03] MEDS ORDERED: Phytonadione 10 MG in Sodium Chloride 0.9% 50 ML IVPB SCH ×2 (09:30→16:15)
--- NOTE | 2018-01-03 15:04 | EKG ---
Test Reason : PREOP Blood Pressure : / mmHG Vent. Rate : 041 BPM Atrial Rate : 041 BPM P-R Int : 138 ms QRS Dur : 086 ms QT Int : 544 ms P-R-T Axes : 036 -25 -10 degrees QTc Int : 448 ms Marked sinus bradycardia Nonspecific T wave abnormality Abnormal ECG Confirmed by JOHN SEN ([id number]) on 01/03/2018 3:04:10 PM Referred By: TASNEEM Confirmed By:JOHN SEN
--- NOTE | 2018-01-03 16:39 | PRG ---
DATE OF SERVICE: 01/03/2018 SUBJECTIVE: Patient reports that her pain is pretty well gone today. She feels much better. No sheyla sea or vomiting. PHYSICAL EXAMINATION: VITAL SIGNS: Her temperature is 98.2. Her heart rate is only 45, blood pressure 112/72. GENERAL: She looks to be in no distress, although she did report she was a little dizzy when she sto od up. LABORATORY DATA: Her PT is still 21.7, INR 1.9. White count 4.1, H&H 13 and 40, platelet count 139. Her T bili is 1.4, AST of 42, ALT of 73. ASSESSMENT: Symptomatic cholelithiasis, possible choledocholithiasis with coagulopathy due to Coumad in and marked bradycardia. PLAN: We will give her a dose of vitamin K, Cardiology consult. Reassess tomorrow.
[2018-01-03] MEDS: Enoxaparin Sodium 40 MG/0.4 ML SYRINGE SC SCH (20:23)
[2018-01-04 06:02] LABS: #Basophils 0.1 thou/uL (0.0-0.2); #Eosinphils 0.1 thou/uL (0.0-0.7); #Lymphocytes 1.5 thou/uL (1.20-3.40); #Monocytes 0.3 thou/uL (0.11-0.59); #Neutrophils 1.4 thou/uL (1.40-6.50); %Basophils 1.6 % (0.0-1.0); %Eosinophils 4.1 % (0.0-10.0); %Monocytes 9.6 % (0.0-10.0); %Neutrophils 41.6 % (42.0-75.0); Hemoglobin 12.2 g/dL (12.0-16.0); Mean Corpuscular HGB CONC 32.1 g/dL (32.0-36.0); Mean Corpuscular Hemoglobin 29.4 pg (27.0-31.0); Mean Corpuscular Volume 91.5 fL (78.0-98.0); Mean Platelet Volume 9.4 fL (7.4-10.4); Platelet Count 125 thou/uL (130-400); RBC Distribution Width 14.9 % (11.5-14.5); Red Blood Cell (RBC) Count 4.14 mill/uL (4.20-5.40); White Blood Cell (WBC) Count 3.4 thou/uL (4.8-10.8)
[2018-01-04] MEDS: Lactated Ringer's 1,000 ML IV SCH ×3 (06:04→16:11)
[2018-01-04] MEDS: Acetaminophen 1,000 MG in Premix Bag 1 BAG IVPB SCH ×4 (06:05→23:48)
[2018-01-04 06:12] LABS: INR-International Normal Ratio 1.3; PTT 31.5 SEC (22.9-36.1); Prothrombin Time 16.7 SEC (12.0-14.7)
[2018-01-04 06:27] LABS: ALT (SGPT) 65 U/L (8-55); AST (SGOT) 35 U/L (5-34); Albumin 3.8 g/dL (3.5-5.0); Alkaline Phosphatase 191 U/L (40-150); Bilirubin, Direct 0.7 mg/dL (0.1-0.3); Bilirubin, Total 1.7 mg/dL (0.2-1.2); Protein, Total 6.3 g/dL (6.0-8.3)
[2018-01-04] MEDS: Ketorolac Tromethamine 30 MG/ML VIAL IVP SCH ×5 (06:47→23:46)
--- NOTE | 2018-01-04 08:33 | PRG ---
DATE OF SERVICE: 01/04/2018 SUBJECTIVE: The patient feels fine. Cardiology saw her and feels that the severe bradycardia may lay ve been related to the scopolamine patch that she had. Since that has been off her heart rate better , it is in the 50s now. PHYSICAL EXAMINATION: VITAL SIGNS: Temperature is 97.7, pulse 54, blood pressure 115/70. Her pain is minimal right now. On exam, she looks good. ABDOMEN: Soft, nondistended. LABORATORY DATA: White count 3.4, H&H 12 and 37, platelet count 125. Her PT is 16.7 with an INR of 1.3. Her total bilirubin has gone up from 1.3 to 1.7, AST 35, ALT 65, alkaline phosphatase 191. ASSESSMENT: Climbing bilirubin, possible choledocholithiasis. PLAN: Consult GI to assess whether she should have a preop ERCP. If not, we will proceed with lapar oscopic cholecystectomy later today.
[2018-01-04] MEDS: Pantoprazole 40 MG VIAL IVP SCH (10:26)
--- NOTE | 2018-01-04 11:02 | CON ---
DATE OF CONSULTATION: 01/04/2018 The patient is a 37-year-old woman, who presented with nausea, vomiting, abdominal discomfort, and was noted to have a slow heart rate. The patient has no previous cardiac history. The patient denies having any history of dizziness or weakness. The patient has never lost consciousness. The patient was admitted with cholecystitis. She was noted to have a slow heart rate and admitted for further evaluation. The patient has no known cardiac risk factors. PAST MEDICAL HISTORY: Portal venous thrombosis. PAST SURGICAL HISTORY: Gastric bypass surgery. SOCIAL HISTORY: Nonsmoker. ALLERGIES: SULFA DRUGS. FAMILY HISTORY: There is a family history of [id number]-[id number] syndrome. REVIEW OF SYSTEMS: Noticeable for nausea, vomiting, and abdominal discomfort. MEDICATIONS ON ADMISSION: Coumadin 5 mg at bedtime. PHYSICAL EXAMINATION: GENERAL: A well-developed woman in no acute distress. VITAL SIGNS: Blood pressure was 119/75. NECK: No jugular vein distention, no carotid bruits. LUNGS: Clear to auscultation. HEART: Regular rate and rhythm, normal S1 and S2. ABDOMEN: Nondistended. EXTREMITIES: Showed no edema. VASCULAR: Radial pulses are 2+. LABORATORY DATA: Sodium 143, potassium 4.1, chloride 110, bicarbonate 28, BUN 12, creatinine 0.73. Her white blood cell count is 4.1, hemoglobin 13.3, hematocrit 40.1, and platelets are 139. Her EKG revealed marked sinus bradycardia with a nonspecific T-wave abnormality. IMPRESSION: 1. Marked bradycardia. 2. History of portal venous thrombosis. 3. Cholecystitis. 4. Status post gastric bypass surgery. This patient presents with cholecystitis. She was found to have marked bradycardia. The patient is asymptomatic. The patient has been on scopolamine since she has been in the hospital. We will discontinue this medication. We will monitor on telemetry. We will check the patient's thyroid panel. We will follow this patient with you through her hospitalization. ISAEL
[2018-01-04] MEDS ORDERED: Bupivacaine/Epinephrine 0.25% 30 ML VIAL ONE (11:51)
[2018-01-04] MEDS ORDERED: Iothalamate Meglumine 60% 50 ML VIAL FS ONE (11:58)
[2018-01-04] MEDS ORDERED: Fentanyl 100 MCG/2 ML VIAL ONE (12:04)
--- NOTE | 2018-01-04 13:51 | CON ---
DATE OF CONSULTATION: 01/04/2018 CHIEF COMPLAINT: Abdominal pain. HISTORY OF PRESENT ILLNESS: Ms. Pablo is a 37-year-old woman who presented to the emergency room on 01/02/2018 with right upper quadrant severe aching to cramping abdominal pain. This pain went on for at least 2 hours and then improved. She has remained tender in the area, however. She had some sheyla sea, but not any persistent vomiting. No diarrhea, constipation or blood in the stool. She was note d to have a gradual increase in her liver tests along with cholelithiasis by ultrasound and there was a concern for choledocholithiasis. She has been followed by Dr. Wolfgang Ames and ultimately planned f or a cholecystectomy. GI was consulted to evaluate for choledocholithiasis. She underwent gastric sleeve surgery back in March. She lost from 219 pounds to 128 pounds. She d id have postsurgical complication of portal vein thrombosis identified a couple weeks after her gastr ic sleeve. She has been on warfarin for that. Her INR is back down towards normal now. PAST MEDICAL HISTORY: Portal vein thrombosis. PAST SURGICAL HISTORY: Laparoscopic sleeve gastrectomy. FAMILY HISTORY: Negative for GI malignancy. SOCIAL HISTORY: No alcohol, tobacco or drugs. ALLERGIES: SULFA. MEDICATIONS PRIOR TO ADMISSION: Coumadin. REVIEW OF SYSTEMS: Negative x10 systems reviewed except as stated in the history of present illness. PHYSICAL EXAMINATION: VITAL SIGNS: Temperature 97.1, pulse 54, blood pressure 115/70. GENERAL: She is in no acute distress, alert and oriented x3. HEENT: Eyes have no scleral icterus. Oropharynx is clear, without lesions. NECK: No cervical or supraclavicular lymphadenopathy. LUNGS: Clear to auscultation bilaterally. HEART: Regular rate and rhythm without murmur. ABDOMEN: Soft. She does have tenderness in the right upper quadrant to palpation without guarding. Bowel sounds are present. EXTREMITIES: No lower extremity edema. NEUROLOGIC: Cranial nerves are grossly intact. LABORATORY AND X-RAY FINDINGS: White blood cell count 3.4, hemoglobin 12.2, platelets 125. INR 1.3, bilirubin 1.7 today, up from 1.3 on 01/02/2018. AST is 35, ALT 65 down from 95 on presentation, alk tyson phosphatase 191 down from 239 on presentation. Albumin 3.8. IMAGING: She had an ultrasound on 01/02/2018 that showed cholelithiasis. Her common bile duct measu red 0.4 cm. IMPRESSION: 1. Symptomatic cholelithiasis with right upper quadrant pain, currently improved. 2. Possible choledocholithiasis given elevated bilirubin, alkaline phosphatase, and mildly elevated transaminases. Her common bile duct was only 0.4 cm by ultrasound on presentation. Her pain pretty much resolved except for some residual tenderness. 3. Portal vein thrombosis for which she has been on warfarin. 4. History of gastric sleeve surgery in 03/2017 with associated 90-pound weight loss. RECOMMENDATIONS: I discussed her case with Dr. Wolfgang Ames. We will plan to proceed with laparoscopi c cholecystectomy with intraoperative cholangiogram. If the cholangiogram confirms choledocholithias is then we will proceed with ERCP.
[2018-01-04] MEDS ORDERED: hydrALAZINE 20 MG/ML VIAL SLOW IVP PRN (13:58)
[2018-01-04] MEDS ORDERED: Promethazine HCl 25 MG/ML VIAL IM PRN ×2 (13:58→14:12)
[2018-01-04] MEDS ORDERED: Dextrose 50% Abboject 50 ML SYRINGE SLOW IVP PRN (13:58)
[2018-01-04] MEDS ORDERED: Dextrose 5% in Water 1,000 ML IV PRN (13:58)
[2018-01-04] MEDS ORDERED: HYDROcodone/Acetaminophen 10/325 mg Tablet PO PRN (13:58)
[2018-01-04] MEDS ORDERED: Morphine 2 MG/ML SYRINGE SLOW IVP PRN (13:58)
[2018-01-04] MEDS ORDERED: Calcium Carbonate 500 MG ChewTAB PO PRN (13:58)
[2018-01-04] MEDS ORDERED: Ondansetron PF 4 MG/2 ML Vial IVP PRN (13:58)
[2018-01-04] MEDS ORDERED: Mag-Al 1200 mg/1200 mg/30 ML UDCUP PO PRN (13:58)
[2018-01-04] MEDS ORDERED: Morphine Sulfate 2 MG/ML SYRINGE SLOW IVP PRN (14:12)
[2018-01-04] MEDS ORDERED: Promethazine HCl 25 MG/ML VIAL SLOW IVP PRN (14:12)
[2018-01-04] MEDS ORDERED: Meperidine HCl/PF 25 MG/ML VIAL SLOW IVP PRN (14:12)
[2018-01-04] MEDS ORDERED: PACU-Morphine 4MG/ML VIAL SLOW IVP PRN (14:12)
[2018-01-04] MEDS ORDERED: Ondansetron HCl/PF 4 MG/2 ML Vial IVP PRN (14:12)
[2018-01-04] MEDS ORDERED: HYDROmorphone 2 MG/ML VIAL SLOW IVP PRN (14:12)
--- NOTE | 2018-01-04 14:39 | OP ---
PREOPERATIVE DIAGNOSIS: Acute cholecystitis. SURGEON: Wolfgang Ames M.D. PROCEDURE PERFORMED: Laparoscopic cholecystectomy. INDICATIONS: This is a 37-year-old female. 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 She was admitted over the weekend with severe right upper quadrant pain, was still on Coumadin. She also had bradycardia of unknown etiology, so we were trying to get her coags down and her heart worked up. She did have elevated liver functions, we were planning a cholangiogra m. FINDINGS: She had unusually dilated venous varicosities surrounding the cystic duct. She had a dist ended gallbladder with thickened gallbladder wall. PROCEDURE IN DETAIL: After informed consent was obtained, the patient was taken to the operating rhea m and given general endotracheal anesthesia. She was placed in the supine position. Her abdomen was prepped and draped in usual fashion. Local anesthesia infiltrated subcutaneously and deep. A subum bilical incision was performed. The subcu divided sharply. Fascia grasped two stay sutures of 0 Simone ryl placed to either side of midline. Midline incised. Digital palpation revealed no local adhesion s. A blunt 12 mm trocar inserted. Pneumoperitoneum was created to a pressure of 15 mmHg. The patie nt placed in the reverse Trendelenburg position. Under direct vision, three 5 mm ports placed subcos tally. The gallbladder seemed much more lateral than normal. It was very distended and had to punct ure with an aspirating needle removed, 100 mL of bile from it. The gallbladder was then grasped and advanced superiorly. The peritoneum was very thickened and there was also a lot of varicosities arou nd the cystic duct. I tried dissecting this out. In dissecting, the duct out ran into bleeding. Th is required a clip on the cystic duct. At this point, anesthesia says there anyway a reason she migh t have had an air embolism because her CO2 had dropped significantly. Sats were down pressure was do wn, so we wound up taking all the air out of her belly and put her down in the right lateral decubitu s position head down. The anesthesiologist came in and said she had a right mainstem intubatio n, so they fix that she was fine. Then we put her back in position and I wound up trying to dissect everything out dome down to try and get a cholangiogram, but because of what it just happened and the patient lost quite a bit of blood, elected to just divide the cystic duct and ligated it rapidly wit h two Endoloops in order to stop the bleeding. Then the artery was triply ligated with Hemoclips and divided. The gallbladder was removed from its fossa utilizing electrocautery and removed. It was p laced in an Endosac and removed from the abdomen in an Endosac. The bed was cauterized and hemostasi s achieved with Mansi powder. A drain was placed in the subhepatic space and brought out through th e lateral most incision. Hemostasis assured. Trocars and retractors removed. The fascia closed wit h interrupted 0 Vicryl suture. The skin closed with interrupted 4-0 Rapide. Dermabond applied. The patient tolerated the procedure well and was transferred to recovery in good condition. Sponge and needle count verified correct x2.
[2018-01-04] MEDS: Sodium Chloride 0.9% 1,000 ML IV SCH ×2 (16:20→23:49)
[2018-01-04] MEDS: HYDROcodone/Acetaminophen 10/325 mg Tablet PO PRN (16:41)
[2018-01-04 17:41] LABS: INR-International Normal Ratio 1.2; PTT 24.8 SEC (22.9-36.1); Prothrombin Time 15.7 SEC (12.0-14.7)
[2018-01-04 17:42] LABS: D-Dimer Test 0.92 *mcg/mL (0.27-0.43)
[2018-01-04] MEDS ORDERED: Dexamethasone 20 MG/5 ML VIAL ONE (17:47)
[2018-01-04] MEDS ORDERED: Lidocaine 1% PF 5 ML VIAL ONE (17:47)
[2018-01-04] MEDS ORDERED: Ondansetron PF 4 MG/2 ML Vial ONE (17:47)
[2018-01-04] MEDS ORDERED: Glycopyrrolate 0.2 MG/ML 5 ML SYRINGE ONE (17:47)
[2018-01-04] MEDS ORDERED: PROPOFOL 200 MG/20 ML VIAL ONE (17:47)
[2018-01-04] MEDS: Morphine 4 MG/ML VIAL SLOW IVP PRN ×2 (17:56→21:21)
[2018-01-04] MEDS: Piperacillin/Tazobactam 3.375 GM in Sodium Chloride 0.9% 100 ML IVPB SCH ×2 (18:52→23:48)
[2018-01-04] MEDS: Enoxaparin Sodium 40 MG/0.4 ML SYRINGE SC SCH (21:14)
[2018-01-04] MEDS: Famotidine 20 MG TAB PO SCH (21:14)
[2018-01-04] MEDS: Famotidine/PF 20 mg/2ml Vial SLOW IVP SCH (21:15)
[2018-01-05] MEDS: Sodium Chloride 0.9% 1,000 ML IV SCH ×2 (04:30→16:25)
[2018-01-05] MEDS: Ketorolac Tromethamine 30 MG/ML VIAL IVP SCH ×3 (06:02→17:30)
[2018-01-05 06:03] LABS: #Monocytes 0.6 thou/uL (0.11-0.59); #Neutrophils 5.8 thou/uL (1.40-6.50); %Lymphocytes 13.7 % (21.0-51.0); %Monocytes 8.6 % (0.0-10.0); %Neutrophils 77.7 % (42.0-75.0); Hemoglobin 10.2 g/dL (12.0-16.0); Mean Corpuscular HGB CONC 32.5 g/dL (32.0-36.0); Mean Corpuscular Hemoglobin 29.6 pg (27.0-31.0); Mean Corpuscular Volume 90.9 fL (78.0-98.0); Mean Platelet Volume 9.2 fL (7.4-10.4); Platelet Count 121 thou/uL (130-400); RBC Distribution Width 14.7 % (11.5-14.5); Red Blood Cell (RBC) Count 3.45 mill/uL (4.20-5.40); White Blood Cell (WBC) Count 7.5 thou/uL (4.8-10.8)
[2018-01-05] MEDS: Piperacillin/Tazobactam 3.375 GM in Sodium Chloride 0.9% 100 ML IVPB SCH ×3 (06:03→17:31)
[2018-01-05 06:17] LABS: ALT (SGPT) 139 U/L (8-55); AST (SGOT) 128 U/L (5-34); Albumin 3.3 g/dL (3.5-5.0); Alkaline Phosphatase 159 U/L (40-150); Anion Gap 12 mmol/L (10-20); BUN (Urea Nitrogen) 9 mg/dL (7.0-18.7); Bilirubin, Total 1.5 mg/dL (0.2-1.2); Calc. Creatinine Clearance 92 mL/min (70-130); Calcium 7.8 mg/dL (7.8-10.44); Carbon Dioxide 24 mmol/L (22-29); Chloride 105 mmol/L (98-107); Estimated GFR-MDRD 85; Globulin 2.1 g/dL (2.4-3.5); Glucose 112 mg/dL (70-105); Lipase 17 U/L (8-78); Potassium 3.5 mmol/L (3.5-5.1); Protein, Total 5.4 g/dL (6.0-8.3); Sodium 137 mmol/L (136-145)
[2018-01-05 06:24] LABS: INR-International Normal Ratio 1.3; PTT 30.8 SEC (22.9-36.1); Prothrombin Time 16.4 SEC (12.0-14.7)
[2018-01-05] MEDS: Pantoprazole 40 MG VIAL IVP SCH (08:38)
[2018-01-05] MEDS: Famotidine/PF 20 mg/2ml Vial SLOW IVP SCH ×2 (08:38→20:05)
[2018-01-05] MEDS: Famotidine 20 MG TAB PO SCH ×2 (08:39→22:26)
[2018-01-05 10:17] LABS: Protein C Activity 94 % (78-152)
[2018-01-05 11:05] LABS: Factor VIII Test 463.5 % ACTIVE (56-157)
[2018-01-05] MEDS: Morphine 4 MG/ML VIAL SLOW IVP PRN (12:17)
--- NOTE | 2018-01-05 12:56 | PQF ---
LESLIE VILLAFANA, MYKE Real JR, MD [id number] CLINICAL DOCUMENTATION IMPROVEMENT CLARIFICATION FORM: ICD-10 Updated PLEASE DO AN ADDENDUM TO THE PROGRESS NOTE WITH ANY DOCUMENTATION UPDATES OR ADDITIONS AND CARRY THROUGH TO DC SUMMARY. THANK YOU. DATE: 01-05-18 ATTN: DR. BOATENG Please exercise your independent, professional judgment in responding to the clarification form. Clinical indicators are provided on the bottom of this form for your review Please check appropriate box(s): In the description of the operative procedure 01-04 LAPAROSCOPIC CHOLECYSTECTOMY - IN DISSECTING THE DUCT OUT, RAN INTO BLEEDING was noted by the surgeon. If possible would you please further clarify if this was: [ ] Incidental occurrence inherent in the surgical procedure [ ] Complication of the procedure [ x] Other Patient had varices due to portal vein thrombosis. Bleeding inherent due to altered anatomy [ ] Unable to determine For continuity of documentation, please document condition throughout progress notes and discharge summary. Thank You. CLINICAL INDICATORS - SIGNS / SYMPTOMS / LABS - OP NOTE (T[place]) ......A LOT OF VARICOSITIES AROUND THE CYSTIC DUCT. I TRIED DISSECTING THIS OUT. IN DISSECTING THE DUCT OUT, RAN INTO BLEEDING. THIS REQUIRED A CLIP ON THE CYSTIC DUCT. PT LOST QUITE A BIT OF BLD, ELECTED TO JUST DIVIDE THE CYSTIC DUCT AND LIGATED IT RAPIDLY WITH TWO ENDOLOOPS IN ORDER TO STOP THE BLEEDING. ANESTH - EBL 500 ML - NO BLD GIVEN RISK FACTORS 10-30 OP NOTE (TASNEEM) - LAPAROSCOPIC CHOLECYSTECTOMY PERITONEUM WAS VERY THICKENED AND THERE WAS A LOT OF VARICOSITIES AROUND THE CYSTIC DUCT. TREATMENTS: 10-30 OP NOTE (TASNEEM) * A CLIP ON THE CYSTIC DUCT. * PT LOST QUITE A BIT OF BLD, ELECTED TO JUST DIVIDE THE CYSTIC DUCT AND LIGATED IT RAPIDLY WITH TWO ENDOLOOPS IN ORDER TO STOP THE BLEEDING. THANK YOU, NATASHA (This form is maintained as a part of the permanent medical record) 2015 [employer]. All Rights Reserved Natasha Nixon RN, BS [email or web address] [employer] [facility]
--- NOTE | 2018-01-05 13:20 | PRG ---
DATE OF SERVICE: 01/05/2018 SUBJECTIVE: The patient reports pain is better than yesterday. PHYSICAL EXAMINATION: VITAL SIGNS: T-max was 99.3, pulse 60, blood pressure 114/62. Her ALTHEA drainage is 100, serosanguineo us. LABORATORY DATA: White blood cell count 7.5, H&H 10 and 31, platelet count 121. Electrolytes; her t otal bilirubin is down to 1.5 from 1.7. Liver transaminases are somewhat elevated, but the alkaline phosphatase is down. ASSESSMENT: Status post complicated laparoscopic cholecystectomy with portal vein thrombosis. PLAN: The GI doctors have requested an MRI MRCP. If that does not require intervention, I would rec ommend she be reanticoagulated and we will continue the workup for possible hypercoagulable state.
--- NOTE | 2018-01-05 13:29 | CON ---
DATE OF CONSULTATION: 01/05/2018 REFERRING PHYSICIAN: Dr. Wilson. I am seeing Ms. Pablo at our [facility] telemetry floor as an electrophysiology biztalk consultant. Her problems are: 1. Asymptomatic sinus bradycardia in the high 30s. A. In the setting of cholecystitis requiring surgery and abdominal discomforts. 2. History of gastrectomy for gastric sleeve surgery in March with significant weight loss from 219 to 128 pounds. 3. No other history of heart disease. 4. History of portal vein thrombus complicating gastric sleeve surgery on Coumadin therapy. ALLERGIES: SULFA. MEDICATIONS AT HOME: Include Coumadin daily, Zofran, Prilosec, hydrocodone. SUBJECTIVE: Ms. Pablo is here due to abdominal discomfort. She had gallstones and discomfort in the upper abdomen. She was given intravenous antibiotics and Dr. Ames has evaluated her for a laparoscopic cholecystectomy. She has had no symptoms of dizziness, loss of consciousness. No typical angina-like symptoms either. No fever, chills, or cough. No stroke-like symptoms, no neurological deficit. Rest of 12-point systems is otherwise unremarkable. PAST MEDICAL HISTORY: As above. PAST SURGICAL HISTORY: Significant for laparoscopy cholecystectomy yesterday as well as a prior history of lap band surgery complicated with portal vein thrombosis. She is on chronic Coumadin anticoagulation for that. She has some splenomegaly, probably due to the portal vein thrombosis. SOCIAL HISTORY: The patient denies smoking, ETOH or drug abuse. FAMILY HISTORY: Noncontributory. OBJECTIVE: VITAL SIGNS: Blood pressure is 99/62, heart rate is 57, respiration 16, temperature 98.5 degrees Fahrenheit. GENERAL: She is an alert and oriented woman, in no apparent distress. NECK: Supple. Jugular veins not distended. CHEST: Coarse without crackles. CARDIOVASCULAR: Heart sounds are regular to rate and rhythm. No murmur or gallop. ABDOMEN: Benign. Bowel sounds positive. EXTREMITIES: Lower extremities without edema, clubbing or cyanosis. Pulses are adequate. NEUROLOGIC: Patient nonfocal. MUSCULOSKELETAL: Without joint swelling or deformities. SKIN: Without rash. DATABASE: EKGs reviewed revealing sinus bradycardia of 39 beats per minute. Telemetry strips reveal heart rates in the high 30s to 40s initially improving to 50s and 60s on subsequent day after surgery. LABORATORY DATA: White blood cell count 7.5, hemoglobin 10.2, platelet count 121,000 postoperatively. Sodium 137, potassium 3.5, BUN is 9, creatinine is 0.76. AST, ALT is initially was 59 and 95, now 128 and 139. TSH is 2.159. ASSESSMENT AND PLAN: Ms. Pablo is a pleasant 37-year-old woman with a history of lap band surgery and significant 91 pound weight loss since March. She developed abdominal discomfort and obvious cholecystitis, which required a laparoscopic cholecystectomy yesterday. Prior to surgery, she was noted to have marked bradycardia, although it was not markedly symptomatic. The bradycardia slightly improved since. I discussed with her the reason for bradycardia is likely hyper vagotonia associated with her abdominal discomfort. Less likely would be premature sinus node disease. Also the significant weight loss might be a role in making her heart more conditioned to higher weights and requiring less heart rates to maintain adequate circulation. Either way, at this point, I did not find her a good candidate for pacing. Should she develop further bradycardia with more symptoms that could be re- entertained. For now, we will just try to avoid negative chronotropic agents and continue telemetry observation until discharge. I have to see her back as an outpatient if felt necessary. ISAEL
--- NOTE | 2018-01-05 13:40 | MRI ---
MRI ABDOMEN AND MRCP: HISTORY: Status post cholecystectomy with elevated LFTs. COMPARISON: CT abdomen and pelvis from 10/06/2017 and gallbladder ultrasound from 01/02/2018. FINDINGS: The patient is status post cholecystectomy. There is no enlargement of the central intrahepatic bili brodie tree or the common bile duct. The common bile duct is small and no obvious filling defects are s een within the common bile duct. The spleen is enlarged. There is hypertrophy of the caudate lobe of the liver. This is likely secon catracho to previously seen thrombosis of the main portal vein with redistribution of flow to the caudate lobe via collaterals. The kidneys, adrenal glands, and pancreas are unremarkable. No abdominal sj nopathy is seen. IMPRESSION: 1. Status post cholecystectomy without enlargement of the biliary tree. 2. Hypertrophy of the caudate lobe of the liver secondary to portal vein thrombus. 3. Splenomegaly. POS: [facility]
[2018-01-05 16:36] LABS: Cardiolipin IgG Ab 0.8 GPL-U/mL (<10 Negative); Cardiolipin IgM Ab 1.5 MPL-U/mL (<10 Negative); EliA APS New Method **** NEW METHOD ****
[2018-01-05] MEDS: Apixaban 5 MG TAB PO SCH (20:05)
--- NOTE | 2018-01-05 23:45 | PRG ---
DATE OF SERVICE: 01/05/2018 SUBJECTIVE: Ms. Pablo still has some abdominal pain. She had surgery yesterday. She started to eat . She has had no fever or chills. I talked to Dr. Ames, he is going to start her back on her antic oagulation. PHYSICAL EXAMINATION: VITAL SIGNS: T-max 99.3, pulse 60, blood pressure 114/62. GENERAL: She is resting in bed. She is on a full liquid diet. She looks to be in no distress. HEENT: Oropharynx without lesions. Neck is supple without adenopathy. Conjunctivae and sclerae alberto ar. Mucous membranes are pink and moist. LABORATORY STUDIES: Hemoglobin is 10.2, it was 12.2 yesterday. White count 7.5, platelet count 121. INR 1.3. Comprehensive metabolic profile notable for a bilirubin of 1.5, AST and ALT are 128 and 1 39, alkaline phosphatase is 159. ASSESSMENT: Status post cholecystectomy.
--- NOTE | 2018-01-06 00:43 | PRG ---
DATE OF SERVICE: 01/05/2018 SUBJECTIVE: Ms. Pablo still have some upper abdominal pain in right upper quadrant. She does not fe el weak or dizzy standing up. She has no fever or chills. No nausea or vomiting. She is tolerating liquid diet. OBJECTIVE: VITAL SIGNS: Temperature is 99.3, pulse 60, blood pressure 114/62. HEENT: Her mucous membranes are pink and moist. Oropharynx is moist. LUNGS: Clear. ABDOMEN: Soft. It is mildly tender diffusely, more so in the right upper quadrant. There is no jeremy ound. There is no guarding. EXTREMITIES: Incision sites are clean and dry. LABORATORY STUDIES: White count 7.5; hemoglobin is 10.2, it was 12.2 yesterday; platelet count 121 t hat is on her baseline up to 195. This is the highest it has been. INR is 1.3. Sodium 137, potassi um 3.5, bicarbonate 24, chloride 105, BUN and creatinine are 9 and 0.76, glucose 112. Bilirubin went from 1.7 yesterday to 1.5 today. AST and ALT went from 35 and 65 to 128 and 139. Alkaline phosphat ase went from 191 to 159. IMAGING STUDIES: A CAT scan on 10/06/2017 showed portal venous thrombosis, which has markedly improv ed. It was confined to the portal confluence at that point in time less distended portal venous syst em. She also had cholelithiasis noted, which had been noted previously. MRI done today to check for choledocholithiasis was negative for choledocholithiasis, hypertrophy of the caudate lobe secondary to portal venous thrombosis. Spleen is still enlarged. There is no other comment on the venous syst em on that study. ASSESSMENT AND PLAN: 1. laparoscopic cholecystectomy with elevated liver function tests. Her IOC was not able to b e performed as the patient had some bleeding intraoperatively and difficulty intubation, so the procedure was cut short. The MRCP shows no evidence of choledocholithiasis. Her alkaline phosphata se and bilirubin are dropping. We will continue to watch this and I will plan for ERCP at this time. We will monitor her liver function tests. 2. 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 Surgeon did notice collateral vessels in the oskar hepatis, which bled during the procedure which led to the IOC not being performed. Presently, she has got a stable hemoglobin, no signs of bleeding. She has stable vital signs. Hemoglobin will be watched here in the hospital for a couple days. She is going to be started on her anticoagulatio n again by Dr. Ames. We will follow along during hospitalization.
[2018-01-06] MEDS: Sodium Chloride 0.9% 1,000 ML IV SCH (00:50)
[2018-01-06] MEDS: Ketorolac Tromethamine 30 MG/ML VIAL IVP SCH ×3 (01:29→12:20)
[2018-01-06] MEDS: Piperacillin/Tazobactam 3.375 GM in Sodium Chloride 0.9% 100 ML IVPB SCH ×4 (01:30→18:26)
[2018-01-06 05:35] LABS: #Eosinphils 0.1 thou/uL (0.0-0.7); #Lymphocytes 1.1 thou/uL (1.20-3.40); #Monocytes 0.4 thou/uL (0.11-0.59); #Neutrophils 2.3 thou/uL (1.40-6.50); %Basophils 0.9 % (0.0-1.0); %Eosinophils 1.9 % (0.0-10.0); %Lymphocytes 28.4 % (21.0-51.0); %Neutrophils 58.9 % (42.0-75.0); Hemoglobin 9.2 g/dL (12.0-16.0); Mean Corpuscular HGB CONC 32.9 g/dL (32.0-36.0); Mean Corpuscular Volume 91.2 fL (78.0-98.0); Mean Platelet Volume 9.2 fL (7.4-10.4); Platelet Count 92 thou/uL (130-400); RBC Distribution Width 14.7 % (11.5-14.5); Red Blood Cell (RBC) Count 3.06 mill/uL (4.20-5.40); White Blood Cell (WBC) Count 3.9 thou/uL (4.8-10.8)
[2018-01-06 05:40] LABS: ALT (SGPT) 142 U/L (8-55); AST (SGOT) 120 U/L (5-34); Albumin 3.2 g/dL (3.5-5.0); Alkaline Phosphatase 162 U/L (40-150); Bilirubin, Direct 0.7 mg/dL (0.1-0.3); Bilirubin, Total 1.3 mg/dL (0.2-1.2); Protein, Total 5.2 g/dL (6.0-8.3)
[2018-01-06] MEDS: Famotidine 20 MG TAB PO SCH (10:07)
[2018-01-06] MEDS: Pantoprazole 40 MG VIAL IVP SCH (10:07)
[2018-01-06] MEDS: Apixaban 5 MG TAB PO SCH (10:07)
[2018-01-06] MEDS: Famotidine/PF 20 mg/2ml Vial SLOW IVP SCH (10:07)
[2018-01-06 16:25] VITALS: BP 116/82; TEMP 98.6
[2018-01-06] MEDS: HYDROcodone/Acetaminophen 10/325 mg Tablet PO PRN (18:26)
--- NOTE | 2018-01-07 07:41 | DIS ---
DISCHARGE DIAGNOSIS: Acute cholecystitis. PROCEDURES DURING ADMISSION: Right upper quadrant ultrasound, laparoscopic cholecystectomy, MRCP. HOSPITAL COURSE: The patient was admitted, taken to the operating room. She underwent a laparoscopi c cholecystectomy was consulted because she had some rising of her LFTs. They recommended to j ust proceed with the cholecystectomy. She was anticoagulated on Coumadin that was allowed to be reve rsed. She was then taken to the operating room where she underwent a laparoscopic cholecystectomy. An attempt made at a cholangiogram was unsuccessful due to varicosities related to portal vein thromb osis. Postoperatively, she did well. Her LFTs started coming down. An MRCP was performed that show ed no dilatation of the intra or extrahepatic biliary ducts. No filling defects consistent with chol edocholithiasis. LFTs are trending downward. She feels good. She is tolerating a regular diet. He r bowels are functioning. She is discharged home on [place], Zofran and Eliquis. She will follow up brit taveras in 2 weeks. She will also follow up with Dr. Dior hypercoagulable panel has been dra santana and she will go over that with the patient.
[2018-01-11 10:43] LABS: HEX PHOS LA Tube 2 42.8 SEC; Hexagonal Phospholipid Neut 1.2 SEC (0-8.0)
== END 2018-01-06 18:35 | disposition home or self-care (01) | DRG 417 ==
LOC: ERS 15:38 → SURG B 18:29 → OBSVTOIN 18:29 → 2NO 01-03 18:32 → SURG A 01-05 13:22
PROVIDERS: ADMIT Specialist; ATTEND Specialist
PROC: 0FT44ZZ Resection of Gallbladder, Percutaneous Endoscopic Approach (ICD-10-PCS; principal; 2018-01-04)
DX: K80.00 Calculus of gallbladder with acute cholecystitis without obstruction (principal); I81 Portal vein thrombosis; I86.8 Varicose veins of other specified sites; R00.1 Bradycardia, unspecified; R16.1 Splenomegaly, not elsewhere classified; Z98.84 Bariatric surgery status; Z79.01 Long term (current) use of anticoagulants; Z88.2 Allergy status to sulfonamides
CPT/HCPCS: 36415; 74181; 76705; 80053; 80076; 81003; 81015; 81025; 81240; 81241; 83090; 83690; 84443; 85025; 85240; 85300; 85303; 85305; 85307; 85379; 85598; 85610; 85730; 86147; 88304; 90471; 90686; 93005; 93010; 96361; 96374; C9113; G0008; J0131; J1100; J1650; J1885; J1956; J2001; J2270; J2405; J2543; J2704; J3010; J3430; J7050; Q9961; S0028

== ENCOUNTER 2018-01-07 12:32 | Emergency (ER) | payer BC ==
[2018-01-07 13:46] LABS: #Eosinphils 0.1 thou/uL (0.0-0.7); #Lymphocytes 1.1 thou/uL (1.20-3.40); #Monocytes 0.7 thou/uL (0.11-0.59); %Basophils 0.7 % (0.0-1.0); %Eosinophils 1.3 % (0.0-10.0); %Lymphocytes 16.3 % (21.0-51.0); %Monocytes 9.3 % (0.0-10.0); %Neutrophils 72.3 % (42.0-75.0); Hemoglobin 11.5 g/dL (12.0-16.0); Mean Corpuscular HGB CONC 31.9 g/dL (32.0-36.0); Mean Corpuscular Hemoglobin 29.5 pg (27.0-31.0); Mean Corpuscular Volume 92.6 fL (78.0-98.0); Mean Platelet Volume 9.4 fL (7.4-10.4); Platelet Count 111 thou/uL (130-400); RBC Distribution Width 14.7 % (11.5-14.5); Red Blood Cell (RBC) Count 3.89 mill/uL (4.20-5.40); White Blood Cell (WBC) Count 6.9 thou/uL (4.8-10.8)
[2018-01-07 14:28] LABS: ALT (SGPT) 147 U/L (8-55); AST (SGOT) 103 U/L (5-34); Albumin 4.2 g/dL (3.5-5.0); Alkaline Phosphatase 261 U/L (40-150); Anion Gap 18 mmol/L (10-20); BUN (Urea Nitrogen) 9 mg/dL (7.0-18.7); Bilirubin, Total 1.5 mg/dL (0.2-1.2); Calc. Creatinine Clearance 0 mL/min (70-130); Calcium 8.6 mg/dL (7.8-10.44); Carbon Dioxide 23 mmol/L (22-29); Chloride 104 mmol/L (98-107); Estimated GFR-MDRD Greater than 90; Globulin 3.1 g/dL (2.4-3.5); Glucose 96 mg/dL (70-105); Potassium 4.7 mmol/L (3.5-5.1); Protein, Total 7.3 g/dL (6.0-8.3); Sodium 140 mmol/L (136-145)
--- NOTE | 2018-01-07 15:54 | ULT ---
LIMITED ULTRASOUND OF THE ABDOMEN: 01/07/18 HISTORY: Cholecystectomy and right lower quadrant swelling. FINDINGS: Focused ultrasound of right lower quadrant and gallbladder fossa provided. Imaging of the right lower quadrant is limited secondary to bowel gas and body habitus. Intraperitoneal contents cannot be asse ssed. Imaging in the gallbladder fossa demonstrates a nonspecific angulated heterogeneously hypoechoic area measuring 2.5 x 1.3 x 1.6 cm which may represent a nonspecific postoperative fluid collection. CT ex amination would be required for further assessment. IMPRESSION: Limited assessment of right lower quadrant. Nonspecific heterogeneously hypoechoic lesion/collection in gallbladder fossa as detailed above. this could rep resent a postoperative fluid collection, inclu ding hematoma or biloma. If clinically warranted, this could be better assessed via CT. POS: [facility]
[2018-01-07] MEDS ORDERED: Ondansetron PF 4 MG/2 ML Vial ONE (17:11)
[2018-01-07] MEDS ORDERED: Morphine 2 MG/ML SYRINGE ONE (17:11)
[2018-01-07 17:24] LABS: INR-International Normal Ratio 1.3; PTT 28.1 SEC (22.9-36.1); Prothrombin Time 15.9 SEC (12.0-14.7)
[2018-01-07 17:38] LABS: Bilirubin, Direct 0.4 mg/dL (0.1-0.3); Bilirubin, Total 1.5 mg/dL (0.2-1.2)
[2018-01-07 17:42] LABS: Acetaminophen Less than 6.0 mcg/mL (10.0-30.0)
--- NOTE | 2018-01-07 20:09 | CT ---
CT OF ABDOMEN AND PELVIS PERFORMED WITH CONTRAST ENHANCEMENT: 01/07/18 HISTORY: Patient was released yesterday after having gallbladder removed and is having swelling. The lung bases show subsegmental atelectasis in the left base. In reviewing the previous MRI study of 01/05/[address] examination of 10/06/17, marked splenomegaly i s again noted. Altered attenuation and hypertrophy of the caudate lobe region causing a mass-like casi earance of the caudate is an unchanged appearance since the MRI study. Patient has history of portal vein thrombus. Postop cholecystectomy changes are noted. There is a small amount of free air seen within the abdomen which is consistent with what is described as a fairly recent surgery. There is a crescentic shaped fluid collection which is in between the right sided abdominal wall musculature. This measures approx imately 14 mm in thickness and extends from the right upper quadrant of the abdomen down to the level of the iliac crest. There is a tiny amount of air density also related to this. This is probably rel ated to postoperative change. Minimal ascites is noted. Gastric bypass is seen. The pancreas region shows no evidence of mass. Right and left adrenal glands and right and left kidneys are normal in appearance. Small amount of ai r is seen in the periumbilical soft tissues. Pelvis shows some minimal free fluid. No adenopathy or m ass. IMPRESSION: 1. Mass-like appearance to the caudate lobe which appears to be related to hypertrophy which is probably secondary to portal vein thrombus. Another etiology that can cause this is hepatic veins bu t it is difficult on this exam to assess the hepatic veins. 2. Postop cholecystectomy changes. No evidence of any fluid collection in the region of the gall bladder fossa. There is some minimal free air which is probably to the recent surgery and there is a fluid density which is extending in between the layers of the intra-abdominal musculature along the right abdomen which is probably postoperative collection. POS: [facility]
== END 2018-01-07 18:20 | disposition home or self-care (01) ==
LOC: ERS 12:32
DX: R10.11 Right upper quadrant pain (principal); R10.31 Right lower quadrant pain; Z79.899 Other long term (current) drug therapy
CPT/HCPCS: 36415; 74177; 76705; 80053; 80307; 82247; 85025; 85610; 85730; 96361; 96374; 96375; J2270; J2405

== ENCOUNTER 2018-04-05 09:21 | Outpatient (CLI) | payer BC ==
--- NOTE | 2018-04-05 11:13 | RAD ---
KUB AND UPRIGHT: History: Abdominal distention. FINDINGS: The bowel gas pattern appears nonobstructed. The right hemidiaphragm is not entirely included on the upright film. If there is a strong suspicion for free air, then a repeat upright film is recommended. Post-operative changes are seen with surgical clips in the upper abdomen. No significant bony change s. IMPRESSION: No signs of obstruction. The upright film does not entirely include the right hemidiaphragm. If free air is a clinical consideration, a repeat upright film would be recommended. POS: [facility]
== END 2018-04-05 09:22 | disposition home or self-care (01) ==
LOC: RAD 09:21
PROVIDERS: ATTEND Surgery
DX: R14.0 Abdominal distension (gaseous) (principal)
CPT/HCPCS: 74019

== ENCOUNTER 2018-04-08 15:02 | Outpatient (CLI) | payer BC ==
--- NOTE | 2018-04-08 16:54 | CT ---
CT ABDOMEN AND PELVIS WITH IV AND ORAL CONTRAST 04/08/18 HISTORY: Abdominal pain and bloating. FINDINGS: Lung bases are clear. Enlargement of the caudate lobe of the liver is again demonstrated. Spleen ericka ures up to 15.5 cm. It has enlarged since last years exam. There is prominence of the mesenteric and splenic veins. Gallbladder is surgically absent. Postoperative changes of the stomach with reflux or oral contrast into the distal esophagus. No evidence of bowel obstruction. Physiologic amount of free fluid within the cul-de-sac. Bilateral ovarian follicles. Urinary bladder is incompletely distended. IMPRESSION: Continued enlargement of the spleen and caudate liver lobe with findings of portal venous hypertensio n including the moderate splenomegaly, varices, and small amount of free fluid. No acute abnormalitie s are otherwise demonstrated. POS: [facility]OS[facility]
== END 2018-04-08 15:03 | disposition home or self-care (01) ==
LOC: SCSCT 15:02
PROVIDERS: ATTEND Surgery
DX: R14.0 Abdominal distension (gaseous) (principal); R16.1 Splenomegaly, not elsewhere classified; K76.6 Portal hypertension; I83.90 Asymptomatic varicose veins of unspecified lower extremity
CPT/HCPCS: 74177

== ENCOUNTER 2020-01-04 07:02 | Outpatient (CLI) | payer BC ==
--- NOTE | 2020-01-04 07:56 | ULT ---
Exam: Hepatic Doppler HISTORY: Portal vein thrombosis. COMPARISON: None. TECHNIQUE: Grayscale, color flow, Doppler imaging and spectral waveform analysis of liver is performe d. FINDINGS: Suboptimal evaluation of the pancreas. There is evidence of ascites, perihepatic. There are varices noted in the gallbladder fossa/portal confluence. Varices are identified on a CT p erformed 04/08/2018. Increased echogenicity of the liver may be due to hepatic steatosis or hepatocellular disease. Right hepatic lobe measures 12.8 cm. Suboptimal evaluation of the common bile duct. Gallbladder is surgically absent. Spleen is enlarged measuring 16.9 cm in maximum dimension. Hepatic Doppler: There is patency and appropriate directional flow of the main portal vein, right por luis vein, left portal vein, middle hepatic vein, right hepatic vein, left hepatic vein and hepatic artery. Splenic vein and artery are also patent. IMPRESSION: 1. Multiple varices at the level of the gallbladder fossa/portal confluence. Varices are noted on a p revious CT from April 2018. 2. Splenomegaly. 3. Small amount of perihepatic fluid. 4. Normal hepatic Doppler. Portal vein appears to be patent. Transcribed Date/Time: 01/04/2020 8:18 AM
== END 2020-01-04 07:03 | disposition home or self-care (01) ==
LOC: BICULT 07:02
DX: Z12.9 Encounter for screening for malignant neoplasm, site unspecified (principal); I81 Portal vein thrombosis; R79.89 Other specified abnormal findings of blood chemistry; K76.6 Portal hypertension; R16.1 Splenomegaly, not elsewhere classified; K82.8 Other specified diseases of gallbladder
CPT/HCPCS: 76705

== ENCOUNTER 2020-08-11 16:32 | Emergency (ER) | payer BC ==
[2020-08-11 17:27] LABS: #Eosinphils 0.1 thou/uL (0.0-0.7); #Monocytes 0.4 thou/uL (0.11-0.59); #Neutrophils 3.5 thou/uL (1.40-6.50); %Basophils 0.6 % (0.0-1.0); %Eosinophils 2.5 % (0.0-10.0); %Lymphocytes 19.8 % (21.0-51.0); %Monocytes 8.3 % (0.0-10.0); %Neutrophils 68.8 % (42.0-75.0); Hemoglobin 12.5 g/dL (12.0-16.0); Mean Corpuscular HGB CONC 34.6 g/dL (32.0-36.0); Mean Corpuscular Hemoglobin 31.6 pg (27.0-31.0); Mean Corpuscular Volume 91.4 fL (78.0-98.0); Mean Platelet Volume 9.5 fL (7.4-10.4); Platelet Count 100 thou/uL (130-400); RBC Distribution Width 13.6 % (11.5-14.5); Red Blood Cell (RBC) Count 3.96 mill/uL (4.20-5.40); White Blood Cell (WBC) Count 5.1 thou/uL (4.8-10.8)
[2020-08-11 17:37] LABS: Bilirubin Negative (Negative); Blood, Urine Negative (Negative); Glucose, Urine (Dipstick) Negative (Negative); Ketone, Urine Negative (Negative); Leukocyte Negative (Negative); Nitrite Negative (Negative); Protein, Urine (Dipstick) Negative (Neg-Trace); Urobilinogen 0.2 mg/dL (Less than 2)
[2020-08-11 17:39] LABS: Bacteria/HPF None Seen HPF (None Seen); Clarity Clear (Clear); RBC/HPF 0-3 HPF (0-3); Squamous Epithelial 0-3 HPF (0-3); WBC/HPF 0-3 HPF (0-3)
[2020-08-11 17:40] LABS: Specific Gravity, Urine 1.004 (1.002-1.036)
[2020-08-11 17:41] LABS: Pregnancy Test - Urine (BHCG) Negative (Negative); Pregu Control Background? CLEAR/WHITE (CLR/WHITE); Pregu Control Bar Appear? YES (CONTROL BAR); Specific Gravity 1.004 (1.002-1.036)
[2020-08-11 17:45] LABS: ALT (SGPT) 44 U/L (8-55); AST (SGOT) 41 U/L (5-34); Albumin 4.1 g/dL (3.5-5.0); Alkaline Phosphatase 180 U/L (40-110); Anion Gap 14 mmol/L (10-20); BUN (Urea Nitrogen) 10 mg/dL (7.0-18.7); Bilirubin, Total 1.5 mg/dL (0.2-1.2); Calc. Creatinine Clearance 0 mL/min (70-130); Calcium 8.9 mg/dL (7.8-10.44); Carbon Dioxide 24 mmol/L (22-29); Chloride 106 mmol/L (98-107); Glucose 94 mg/dL (70-105); Potassium 4.1 mmol/L (3.5-5.1); Protein, Total 7.1 g/dL (6.0-8.3); Sodium 140 mmol/L (136-145)
== END 2020-08-11 19:15 | disposition home or self-care (01) ==
LOC: ERS 16:32
DX: R19.7 Diarrhea, unspecified (principal); R10.9 Unspecified abdominal pain; R11.2 Nausea with vomiting, unspecified; Z79.01 Long term (current) use of anticoagulants; Z79.899 Other long term (current) drug therapy
CPT/HCPCS: 36415; 80053; 81003; 81025; 85025; 99284

== ENCOUNTER 2020-11-08 08:13 | Outpatient (CLI) | payer BC ==
[2020-11-08] MEDS ORDERED: Iopamidol 370 76% 100 ML VIAL ONE (09:01)
== END 2020-11-08 08:14 | disposition home or self-care (01) ==
LOC: CT 08:13
PROVIDERS: ATTEND Physician Assistant Medical
DX: Z11.59 Encounter for screening for other viral diseases (principal); K76.9 Liver disease, unspecified; R94.5 Abnormal results of liver function studies; I81 Portal vein thrombosis; K64.9 Unspecified hemorrhoids; R16.1 Splenomegaly, not elsewhere classified; R18.8 Other ascites
CPT/HCPCS: 74170; Q9967